=== PATIENT | male | born 1930 | race Two or more races ===

== ENCOUNTER 2017-09-04 10:27 | Inpatient (IN) | payer MEDICARE, OTHER ==
[~2017-09-04] VITALS: Ht 170.2 cm; Wt 68.0 kg
[~2017-09-04 10:27] MED LIST: AMLODIPINE BESY10 MG ORAL; ARICEPT5 MG ORAL; ASPIRIN EC81 MG ORAL; DIVALPROEX SOD125 MG PO; DOCUSATE SODIU100 M2 ORAL; MILK OF MA400 MG/51 ORAL; NAMENDA5 MG ORAL; NITROGLYCERIN0.4 MG SL; POLYETHYLENE GL17 GM ORAL; TYLENOL325 MG ORAL; ZYPREXA ZYDIS5 MG ORAL
[2017-09-04 10:45] VITALS: BP 128/45
[2017-09-04] MEDS ORDERED: LACTULOSE20 GM/301 ORAL (10:50)
[2017-09-04] MEDS ORDERED: IMODIUM A-D2 M2 PO (10:50)
[2017-09-04] MEDS ORDERED: CENTRUM SILVER1 EAC7 PO (10:50)
[2017-09-04] MEDS ORDERED: CITRACAL-VIT D1 EAC2 PO (10:50)
[2017-09-04] MEDS ORDERED: Sodium Chloride 500ML 500 ML IV ONE (10:51)
[2017-09-04 11:08] LABS: BASOPHILS % (AUTO) 1.6 % (0.0-2.0); EOSINOPHILS % (AUTO) 2.7 % (0.0-3.0); LYMPHOCYTES % (AUTO) 19.8 % (20.0-45.0); MEAN CORPUSCULAR HEMOGLOBIN 32.4 PG (27.0-31.0); MEAN CORPUSCULAR HGB CONC 33.8 G/DL (32.0-36.0); MEAN CORPUSCULAR VOLUME 96 FL (80-99); MEAN PLATELET VOLUME 6.3 FL (6.5-10.1); MONOCYTES % (AUTO) 8.9 % (1.0-10.0); NEUTROPHILS % (AUTO) 67.1 % (45.0-75.0); PLATELET COUNT 242 K/UL (150-450); RED BLOOD COUNT 4.06 M/UL (4.70-6.10); RED CELL DISTRIBUTION WIDTH 12.4 % (11.6-14.8); WHITE BLOOD COUNT 7.5 K/UL (4.8-10.8)
[2017-09-04 11:38] LABS: APPEARANCE,URINE CLEAR; KETONES,URINE 2+ (NEGATIVE); LEUKOCYTE ESTERASE ,URINE 1+ (NEGATIVE); NITRITE,URINE NEGATIVE (NEGATIVE); PH,URINE 5 (4.5-8.0); PROTEIN,URINE 2+ (NEGATIVE); UROBILINOGEN,URINE 1 MG/DL (0.0-1.0)
--- NOTE | 2017-09-04 11:43 | Emergency Room Report ---
History of Present Illness General Chief Complaint: Chest Pain Source: Family Member Present Illness HPI 87-year-old male presents ED for evaluation. Son at bedside states that patient complaining of chest pain for last 5 days. Denies any chest pain at this time. Intermittent. Midsternal, nonradiating. Denies shortness of breath. Denies fevers chills or cough. Patient also complaining of diarrhea for the last 5 days. States he is feeling weak. Poor appetite. Denies recent travel or sick contacts. No other aggravating relieving factors. Denies any other associated symptoms Allergies: Coded Allergies: No Known Allergies (Unverified , 05/17/16) Patient History Past Medical History: HTN, dementia Past Surgical History: none Pertinent Family History: none Social History: Denies: smoking, alcohol use, drug use Immunizations: UTD Reviewed Nursing Documentation: PMH: Agreed, PSxH: Agreed Nursing Documentation-PMH Hx Hypertension: Yes Hx Cancer: No Hx Gastrointestinal Problems: No Hx Dementia: Yes Review of Systems All Other Systems: negative except mentioned in HPI Physical Exam Vital Signs Date Time Temp Pulse Resp B/P (MAP) Pulse Ox O2 Delivery O2 Flow Rate FiO2 09/04/17 10:35 97.2 78 24 129/64 98 Room Air Sp02 EP Interpretation: reviewed, normal General Appearance: no apparent distress, alert, GCS 15, non-toxic Head: normocephalic, atraumatic Eyes: bilateral eye normal inspection, bilateral eye PERRL ENT: hearing grossly normal, normal pharynx, no angioedema, normal voice Neck: full range of motion, supple/symm/no masses Respiratory: chest non-tender, lungs clear, normal breath sounds, speaking full sentences Cardiovascular #1: regular rate, rhythm, no edema Cardiovascular #2: 2+ carotid (R), 2+ carotid (L), 2+ radial (R), 2+ radial (L) , 2+ dorsalis pedis (R), 2+ dorsalis pedis (L) Gastrointestinal: normal bowel sounds, non tender, soft, non-distended, no guarding, no rebound Rectal: deferred Genitourinary: normal inspection, no CVA tenderness Musculoskeletal: back normal, gait/station normal, normal range of motion, non- tender Neurologic: alert, oriented x3, responsive, motor strength/tone normal, sensory intact, speech normal Psychiatric: judgement/insight normal, memory normal, mood/affect normal, no suicidal/homicidal ideation Reflexes: 3+ bicep (R), 3+ bicep (L), 3+ tricep (R), 3+ tricep (L), 3+ knee (R) , 3+ knee (L) Skin: normal color, no rash, warm/dry, well hydrated Lymphatic: no adenopathy Medical Decision Making Diagnostic Impression: Primary Impression: ACS (acute coronary syndrome) Additional Impressions: Alzheimer's dementia Qualified Codes: G30.9 - Alzheimer's disease, unspecified; F02.80 - Dementia in other diseases classified elsewhere without behavioral disturbance Diarrhea Qualified Codes: R19.7 - Diarrhea, unspecified Hypokalemia ER Course Hospital Course 87-year-old male presents to ED complaining of chest pain, diarrhea x5 days Differential diagnoses include: [place]/unstable angina, dehydration,sepsis Clinical course Patient placed on stretcher. on laminate floor installer. After initial history and physical I ordered labs, EKG, chest x-ray, IVFs labs reviewed- no leukocytosis, hb/hct stable, K 2.7, Trop negative EKG - NSR, no acute ischemic changes interpreted by me Chest x-ray- no acute process identified Aspirin given. Potassium repleted Case discussed with Dr. Stevens and he agreed to accept the patient to his service for further care and support I. I feel this is a highly complex case requiring extensive working including EKG/Rhythm strip, Xray/CT/US, Blood/urine lab work, repeat exams while in ED, and administration of strong opiates/narcotics for pain control, admission to hospital or close patient follow up. Diagnosis - ACS, dementia, diarrhea, hypokalemia admitted to telemetry in serious condition Labs Test 09/04/17 11:00 09/04/17 11:26 White Blood Count 7.5 K/UL (4.8-10.8) Red Blood Count 4.06 M/UL (4.70-6.10) Hemoglobin 13.2 G/DL (14.2-18.0) Hematocrit 38.9 % (42.0-52.0) Mean Corpuscular Volume 96 FL (80-99) Mean Corpuscular Hemoglobin 32.4 PG (27.0-31.0) Mean Corpuscular Hemoglobin Concent 33.8 G/DL (32.0-36.0) Red Cell Distribution Width 12.4 % (11.6-14.8) Platelet Count 242 K/UL (150-450) Mean Platelet Volume 6.3 FL (6.5-10.1) Neutrophils (%) (Auto) 67.1 % (45.0-75.0) Lymphocytes (%) (Auto) 19.8 % (20.0-45.0) Monocytes (%) (Auto) 8.9 % (1.0-10.0) Eosinophils (%) (Auto) 2.7 % (0.0-3.0) Basophils (%) (Auto) 1.6 % (0.0-2.0) Sodium Level 147 MMOL/L (136-145) Potassium Level 2.7 MMOL/L (3.5-5.1) Chloride Level 110 MMOL/L (98-107) Carbon Dioxide Level 26 MMOL/L (21-32) Anion Gap 11 mmol/L (5-15) Blood Urea Nitrogen 28 mg/dL (7-18) Creatinine 1.0 MG/DL (0.55-1.30) Estimat Glomerular Filtration Rate mL/min (>60) Glucose Level 111 MG/DL (74-106) Calcium Level 9.3 MG/DL (8.5-10.1) Total Bilirubin 0.7 MG/DL (0.2-1.0) Aspartate Amino Transf (AST/SGOT) 23 U/L (15-37) Alanine Aminotransferase (ALT/SGPT) 33 U/L (12-78) Alkaline Phosphatase 50 U/L (46-116) Total Creatine Kinase 115 U/L (26-308) Creatine Kinase MB 3.9 NG/ML (0.0-3.6) Creatine Kinase MB Relative Index 3.3 Troponin I 0.000 ng/mL (0.000-0.056) Pro-B-Type Natriuretic Peptide 248 pg/mL (0-125) Total Protein 7.3 G/DL (6.4-8.2) Albumin 3.8 G/DL (3.4-5.0) Globulin 3.5 g/dL Albumin/Globulin Ratio 1.1 (1.0-2.7) Urine Color Yellow Urine Appearance Clear Urine pH 5 (4.5-8.0) Urine Specific [place] 1.020 (1.005-1.035) Urine Protein 2+ (NEGATIVE) Urine Glucose (UA) Negative (NEGATIVE) Urine Ketones 2+ (NEGATIVE) Urine Occult Blood Negative (NEGATIVE) Urine Nitrite Negative (NEGATIVE) Urine Bilirubin Negative (NEGATIVE) Urine Urobilinogen 1 MG/DL (0.0-1.0) Urine Leukocyte Esterase 1+ (NEGATIVE) Urine RBC 0-2 /HPF (0 - 0) Urine WBC 2-4 /HPF (0 - 0) Urine Squamous Epithelial Cells Occasional /LPF Urine Bacteria Occasional /HPF (NONE) Urine Mucus Few /LPF (NONE/OCC) EKG Diagnostic Results Rate: normal Rhythm: NSR ST Segments: no acute changes ASA given to the pt in ED: Yes Rhythm Strip Diag. Results EP Interpretation: yes Rhythm: NSR, no PVC's, no ectopy Chest X-Ray Diagnostic Results Chest X-Ray Diagnostic Results : Chest X-Ray Ordered: Yes # of Views/Limited/Complete: 1 View Indication: Chest Pain EP Interpretation: Yes Interpretation: no consolidation, no effusion, no pneumothorax, no acute cardiopulmonary disease Impression: No acute disease Electronically Signed by: Electronically signed by Ken Jones MD Last Vital Signs Date Time Temp Pulse Resp B/P (MAP) Pulse Ox O2 Delivery O2 Flow Rate FiO2 09/04/17 10:45 78 24 Room Air 09/04/17 10:45 97.2 128/45 97 Status: improved Disposition: ADMITTED INPATIENT Condition: Serious Referrals: Darvin Stevens MD (PCP) KEN JONES M.D. Sep 04, 2017 11:43
[2017-09-04 11:47] LABS: BACTERIA,URINE OCCASIONAL /HPF; MUCUS,URINE FEW /LPF (NONE/OCC); RBC,URINE 0-2 /HPF (0 - 0); SQUAMOUS EPITHELIAL CELL,UR OCCASIONAL /LPF (NONE/OCC)
[2017-09-04 11:49] LABS: ALANINE AMINOTRANSFERASE 33 U/L (12-78); ALBUMIN/GLOBULIN RATIO 1.1 (1.0-2.7); ANION GAP 11 mmol/L (5-15); ASPARTATE AMINO TRANSFERASE 23 U/L (15-37); CALCIUM 9.3 MG/DL (8.5-10.1); CARBON DIOXIDE 26 MMOL/L (21-32); CHLORIDE 110 MMOL/L (98-107); CKMB 3.9 NG/ML (0.0-3.6); SODIUM 147 MMOL/L (136-145); TOTAL PROTEIN 7.3 G/DL (6.4-8.2)
[2017-09-04 11:51] LABS: POTASSIUM 2.7 MMOL/L (3.5-5.1)
[2017-09-04] MEDS ORDERED: Potassium Chloride 50 MEQ in Sodium Chloride 500ML 550 ML IVPB ONE (12:00)
[2017-09-04 12:40] VITALS: BP 138/68
[2017-09-04] MEDS ORDERED: Enalaprilat 2.5mg/2ml Inj IV PRN (12:45)
[2017-09-04] MEDS ORDERED: Miralax 17gm pkt ORAL PRN (12:45)
[2017-09-04] MEDS ORDERED: dilTIAZem HCl 25mg/5ml Inj IV PRN (12:45)
[2017-09-04] MEDS ORDERED: Ketorolac 30mg Inj IV PRN (12:45)
[2017-09-04] MEDS ORDERED: Morphine Sulfate 2mg/ml Inj IVP PRN (12:45)
[2017-09-04] MEDS ORDERED: Nitroglycerin Subl 0.4mg tab SL PRN (12:45)
[2017-09-04] MEDS ORDERED: Albuterol/Ipratropium 3ml neb HHN PRN (12:45)
[2017-09-04 13:20] VITALS: BP 117/51
--- NOTE | 2017-09-04 13:52 | Consultation ---
History of Present Illness General Date patient seen: Sep 04, 2017 Chief Complaint: Chest Pain Referring physician: Dr. Das Reason for Consultation: chest pain Present Illness HPI 87-year-old male with hx of dementia and HTN presented to ED for evaluation of chest pain for last 5 days. Denies any chest pain at this time. Intermittent. Midsternal, nonradiating. Denies shortness of breath. Denies fevers chills or cough. Patient also complaining of diarrhea for the last 5 days. States he is feeling weak. Poor appetite. Pt can not provide any history and all information is obtained form the chart. Allergies: Coded Allergies: No Known Allergies (Unverified , 05/17/16) Medication History Scheduled Amlodipine Besylate* (Amlodipine Besylate*), 10 MG ORAL DAILY, (Reported) Aspirin Ec* (Aspirin Ec*), 81 MG ORAL DAILY, (Reported) Divalproex Sodium (Divalproex Sodium), 125 MG PO EVERY 12 HOURS, (Reported) Docusate Sodium (Docusate Sodium), 100 MG ORAL TWICE A DAY, (Reported) Donepezil Hcl* (Aricept*), 5 MG ORAL DAILY, (Reported) Magnesium Hydroxide* (Milk Of Magnesia*), 30 ML ORAL DAILY, (Reported) Memantine Hcl* (Namenda*), 5 MG ORAL TWICE A DAY, (Reported) Nitroglycerin (Nitroglycerin), 0.4 MG SL q5m x3 doses prn, (Reported) Nitroglycerin (Nitroglycerin), 0.4 MG SL q5mins x3 doses prn , (Reported) Olanzapine Zydis* (Zyprexa Zydis*), 5 MG ORAL DAILY, (Reported) Scheduled PRN Acetaminophen (Tylenol), 650 MG ORAL EVERY 4 HOURS PRN for Fever/Headache/Mild Pain, (Reported) Polyethylene Glycol 3350* (Polyethylene Glycol 3350*), 17 GM ORAL BEDTIME PRN for Constipation, (Reported) Miscellaneous Medications Manav Cit/Mag/D3/Zn/Branch Lending Manager/Yonny/Bor (Citracal-Vit D + Magnesium Tab), 1 EACH PO, ( Reported) Lactulose (Lactulose*), 30 ML ORAL, (Reported) Loperamide HCl (Imodium A-D), 2 MG PO, (Reported) Multivit-Min/FA/Lycopen/Lutein (Centrum Silver Men Tablet), 1 EACH PO, (Reported ) Patient History Healthcare decision maker Resuscitation status Advanced Directive on File Past Medical/Surgical History Past Medical/Surgical History: (1) Hypertension (2) Alzheimer's dementia Review of Systems All Other Systems: negative except mentioned in HPI Physical Exam General Appearance: WD/WN Lines, tubes and drains: peripheral HEENT: normocephalic, atraumatic Neck: non-tender, normal alignment Respiratory/Chest: chest wall non-tender, lungs clear, normal breath sounds Cardiovascular/Chest: normal peripheral pulses, normal rate Abdomen: normal bowel sounds Genitourinary/Rectal: normal genital exam Extremities: normal range of motion Last 24 Hour Vital Signs Date Time Temp Pulse Resp B/P (MAP) Pulse Ox O2 Delivery O2 Flow Rate FiO2 09/04/17 13:20 98.0 60 15 117/51 95 Room Air 09/04/17 12:40 98.0 70 17 138/68 96 Room Air 09/04/17 10:45 78 24 Room Air 09/04/17 10:45 97.2 65 19 128/45 97 Room Air 09/04/17 10:35 97.2 78 24 129/64 98 Room Air Intake and Output 09/04/17 09/05/17 19:00 07:00 Intake Total 0 ml Balance 0 ml Intake Oral 0 ml Laboratory Tests Test 09/04/17 11:00 09/04/17 11:26 White Blood Count 7.5 K/UL (4.8-10.8) Red Blood Count 4.06 M/UL (4.70-6.10) L Hemoglobin 13.2 G/DL (14.2-18.0) L Hematocrit 38.9 % (42.0-52.0) L Mean Corpuscular Volume 96 FL (80-99) Mean Corpuscular Hemoglobin 32.4 PG (27.0-31.0) H Mean Corpuscular Hemoglobin Concent 33.8 G/DL (32.0-36.0) Red Cell Distribution Width 12.4 % (11.6-14.8) Platelet Count 242 K/UL (150-450) Mean Platelet Volume 6.3 FL (6.5-10.1) L Neutrophils (%) (Auto) 67.1 % (45.0-75.0) Lymphocytes (%) (Auto) 19.8 % (20.0-45.0) L Monocytes (%) (Auto) 8.9 % (1.0-10.0) Eosinophils (%) (Auto) 2.7 % (0.0-3.0) Basophils (%) (Auto) 1.6 % (0.0-2.0) Sodium Level 147 MMOL/L (136-145) H Potassium Level 2.7 MMOL/L (3.5-5.1) *L Chloride Level 110 MMOL/L (98-107) H Carbon Dioxide Level 26 MMOL/L (21-32) Anion Gap 11 mmol/L (5-15) Blood Urea Nitrogen 28 mg/dL (7-18) H Creatinine 1.0 MG/DL (0.55-1.30) Estimat Glomerular Filtration Rate mL/min (>60) Glucose Level 111 MG/DL (74-106) H Calcium Level 9.3 MG/DL (8.5-10.1) Total Bilirubin 0.7 MG/DL (0.2-1.0) Aspartate Amino Transf (AST/SGOT) 23 U/L (15-37) Alanine Aminotransferase (ALT/SGPT) 33 U/L (12-78) Alkaline Phosphatase 50 U/L (46-116) Total Creatine Kinase 115 U/L (26-308) Creatine Kinase MB 3.9 NG/ML (0.0-3.6) H Creatine Kinase MB Relative Index 3.3 Troponin I 0.000 ng/mL (0.000-0.056) Pro-B-Type Natriuretic Peptide 248 pg/mL (0-125) H Total Protein 7.3 G/DL (6.4-8.2) Albumin 3.8 G/DL (3.4-5.0) Globulin 3.5 g/dL Albumin/Globulin Ratio 1.1 (1.0-2.7) Urine Color Yellow Urine Appearance Clear Urine pH 5 (4.5-8.0) Urine Specific [place] 1.020 (1.005-1.035) Urine Protein 2+ (NEGATIVE) H Urine Glucose (UA) Negative (NEGATIVE) Urine Ketones 2+ (NEGATIVE) H Urine Occult Blood Negative (NEGATIVE) Urine Nitrite Negative (NEGATIVE) Urine Bilirubin Negative (NEGATIVE) Urine Urobilinogen 1 MG/DL (0.0-1.0) H Urine Leukocyte Esterase 1+ (NEGATIVE) H Urine RBC 0-2 /HPF (0 - 0) H Urine WBC 2-4 /HPF (0 - 0) Urine Squamous Epithelial Cells Occasional /LPF Urine Bacteria Occasional /HPF (NONE) Urine Mucus Few /LPF (NONE/OCC) H Height (Feet): 5 Height (Inches): 7.00 Weight (Pounds): 150 Medications Current Medications Medications (Trade) Dose Ordered Sig/Nicolle Route PRN Reason Start Time Stop Time Status Last Admin Dose Admin Acetaminophen (Tylenol) 650 mg Q4H PRN ORAL FEVER 09/04/17 12:45 10/04/17 12:44 Albuterol/ Ipratropium (Albuterol/ Ipratropium) 3 ml EVERY 4 HOURS PRN HHN Shortness of Breath 09/04/17 12:45 09/09/17 12:44 Amlodipine Besylate (Norvasc) 10 mg DAILY ORAL 09/05/17 09:00 10/05/17 08:59 Aspirin (ASA) 162 mg DAILY ORAL 09/05/17 09:00 10/05/17 08:59 Diltiazem HCl (Cardizem) 10 mg EVERY HOUR PRN IV heart rate more than 120, 09/04/17 12:45 10/04/17 12:44 Divalproex Sodium (Depakote Sprinkles) 125 mg EVERY 12 HOURS ORAL 09/04/17 21:00 10/04/17 20:59 Donepezil HCl (Aricept) 5 mg DAILY ORAL 09/05/17 09:00 10/05/17 08:59 Enalaprilat (Vasotec) 2.5 mg EVERY 6 HOURS PRN IV sbp more than 160 09/04/17 12:45 10/04/17 12:44 Heparin Sodium (Porcine) (Heparin 5000 units/ml) 5,000 units EVERY 12 HOURS SUBQ 09/04/17 21:00 10/04/17 20:59 Ketorolac Tromethamine (Toradol 30mg) 30 mg Q6HR PRN IV moderate pain ( 4-6) 09/04/17 12:45 09/09/17 12:44 Memantine (Namenda) 5 mg TWICE A DAY ORAL 09/04/17 18:00 1/11/18 17:59 Morphine Sulfate (Morphine Sulfate) 2 mg EVERY 4 HOURS PRN IVP severe Pain (Pain Scale 7-10) 09/04/17 12:45 09/11/17 12:44 Nitroglycerin (Ntg) 0.4 mg Q5M PRN SL Prn Chest Pain 09/04/17 12:45 10/04/17 12:44 Olanzapine (ZyPREXA Zydis) 5 mg DAILY ORAL 09/05/17 09:00 10/05/17 08:59 Ondansetron HCl (Zofran) 4 mg Q6H PRN IVP Nausea & Vomiting 09/04/17 12:45 10/04/17 12:44 Polyethylene Glycol (Miralax) 17 gm DAILYPRN PRN ORAL Constipation 09/04/17 12:45 10/04/17 12:44 Potassium Chloride 50 meq/ Sodium Chloride 575 ml @ 115 mls/hr ONCE ONCE IVPB 09/04/17 12:00 09/04/17 16:59 09/04/17 12:24 Temazepam (Restoril) 15 mg HSPRN PRN ORAL Insomnia 09/04/17 12:45 09/11/17 12:44 Assessment/Plan Problem List: (1) ACS (acute coronary syndrome) ICD Codes: I24.9 - Acute ischemic heart disease, unspecified SNOMED: 320322445 (2) Hypertension ICD Codes: I10 - Essential (primary) hypertension SNOMED: 93567357 (3) Alzheimer's dementia ICD Codes: G30.9 - Alzheimer's disease, unspecified SNOMED: 93813469 Qualifiers: Qualified Codes: G30.9 - Alzheimer's disease, unspecified; F02.80 - Dementia in other diseases classified elsewhere without behavioral disturbance (4) Diarrhea ICD Codes: R19.7 - Diarrhea, unspecified SNOMED: 29826392 Qualifiers: Qualified Codes: R19.7 - Diarrhea, unspecified Assessment/Plan serial ekg, troponin cardiology evaluation echo dvt prophyalxis monitor BP DUNIA COLLINS Sep 04, 2017 13:52
--- NOTE | 2017-09-04 15:16 | Cardiology Progress Note ---
Assessment/Plan Assessment/Plan [id number] chp encephalopathy demtia ? repeat enzyem / echo and ekg hopefully will becomer more awake ot see about sx Objective Last 24 Hour Vital Signs Date Time Temp Pulse Resp B/P (MAP) Pulse Ox O2 Delivery O2 Flow Rate FiO2 09/04/17 13:35 98.0 60 15 117/51 95 Room Air 09/04/17 13:20 98.0 60 15 117/51 95 Room Air 09/04/17 12:40 98.0 70 17 138/68 96 Room Air 09/04/17 10:45 78 24 Room Air 09/04/17 10:45 97.2 65 19 128/45 97 Room Air 09/04/17 10:35 97.2 78 24 129/64 98 Room Air Intake and Output 09/04/17 09/05/17 19:00 07:00 Intake Total 0 ml Balance 0 ml Intake Oral 0 ml Laboratory Tests Test 09/04/17 11:00 09/04/17 11:26 White Blood Count 7.5 K/UL (4.8-10.8) Red Blood Count 4.06 M/UL (4.70-6.10) L Hemoglobin 13.2 G/DL (14.2-18.0) L Hematocrit 38.9 % (42.0-52.0) L Mean Corpuscular Volume 96 FL (80-99) Mean Corpuscular Hemoglobin 32.4 PG (27.0-31.0) H Mean Corpuscular Hemoglobin Concent 33.8 G/DL (32.0-36.0) Red Cell Distribution Width 12.4 % (11.6-14.8) Platelet Count 242 K/UL (150-450) Mean Platelet Volume 6.3 FL (6.5-10.1) L Neutrophils (%) (Auto) 67.1 % (45.0-75.0) Lymphocytes (%) (Auto) 19.8 % (20.0-45.0) L Monocytes (%) (Auto) 8.9 % (1.0-10.0) Eosinophils (%) (Auto) 2.7 % (0.0-3.0) Basophils (%) (Auto) 1.6 % (0.0-2.0) Sodium Level 147 MMOL/L (136-145) H Potassium Level 2.7 MMOL/L (3.5-5.1) *L Chloride Level 110 MMOL/L (98-107) H Carbon Dioxide Level 26 MMOL/L (21-32) Anion Gap 11 mmol/L (5-15) Blood Urea Nitrogen 28 mg/dL (7-18) H Creatinine 1.0 MG/DL (0.55-1.30) Estimat Glomerular Filtration Rate mL/min (>60) Glucose Level 111 MG/DL (74-106) H Calcium Level 9.3 MG/DL (8.5-10.1) Total Bilirubin 0.7 MG/DL (0.2-1.0) Aspartate Amino Transf (AST/SGOT) 23 U/L (15-37) Alanine Aminotransferase (ALT/SGPT) 33 U/L (12-78) Alkaline Phosphatase 50 U/L (46-116) Total Creatine Kinase 115 U/L (26-308) Creatine Kinase MB 3.9 NG/ML (0.0-3.6) H Creatine Kinase MB Relative Index 3.3 Troponin I 0.000 ng/mL (0.000-0.056) Pro-B-Type Natriuretic Peptide 248 pg/mL (0-125) H Total Protein 7.3 G/DL (6.4-8.2) Albumin 3.8 G/DL (3.4-5.0) Globulin 3.5 g/dL Albumin/Globulin Ratio 1.1 (1.0-2.7) Urine Color Yellow Urine Appearance Clear Urine pH 5 (4.5-8.0) Urine Specific [place] 1.020 (1.005-1.035) Urine Protein 2+ (NEGATIVE) H Urine Glucose (UA) Negative (NEGATIVE) Urine Ketones 2+ (NEGATIVE) H Urine Occult Blood Negative (NEGATIVE) Urine Nitrite Negative (NEGATIVE) Urine Bilirubin Negative (NEGATIVE) Urine Urobilinogen 1 MG/DL (0.0-1.0) H Urine Leukocyte Esterase 1+ (NEGATIVE) H Urine RBC 0-2 /HPF (0 - 0) H Urine WBC 2-4 /HPF (0 - 0) Urine Squamous Epithelial Cells Occasional /LPF Urine Bacteria Occasional /HPF (NONE) Urine Mucus Few /LPF (NONE/OCC) H DAO HERRERA Sep 04, 2017 15:16
[2017-09-04 16:00] VITALS: BP 157/60
--- NOTE | 2017-09-04 16:29 | GI Initial Consult Note ---
AnisaMaggi Cristofer N.PClaudia 09/04/17 1629: History of Present Illness General Date patient seen: Sep 04, 2017 Time patient seen: 16:15 Reason for Hospitalization: Chest Pain Referring physician: DUNIA ALVAREZ Reason for Consultation: DIARRHEA Present Illness HPI 87-year-old male presents ED for evaluation. Son at bedside states that patient complaining of chest pain for last 5 days. Denies any chest pain at this time. Intermittent. Midsternal, nonradiating. Denies shortness of breath. Denies fevers chills or cough. Patient also complaining of diarrhea for the last 5 days. States he is feeling weak. Poor appetite. Denies recent travel or sick contacts. No other aggravating relieving factors. Denies any other associated symptoms. GI consulted for diarrhea. HPI as noted above. Pt seen on floor, awake A&Ox4 NAD with no active s/sx of N/V/D. Complain of abdominal pain. No noted diarrhea at this time. Presents today with generalized weakness, mild anemia and hypokalemia. Unknown history of endoscopic / colonoscopies. PAST MEDICAL HISTORY/PAST SURGICAL HISTORY: As above history of hypertension, osteoarthritis, and possible dementia. He had a history of leg surgery in the past for unknown reasons. Home Meds Reported Medications Multivit-Min/FA/Lycopen/Lutein (CENTRUM SILVER MEN TABLET) 1 Each Tablet, 1 EACH PO, TAB 09/04/17 Manav Cit/Mag/D3/Zn/On Site Coordinator/Yonny/Bor (CITRACAL-VIT D + MAGNESIUM TAB) 1 Each Tablet, 1 EACH PO, TAB 09/04/17 Loperamide HCl (IMODIUM A-D) 2 Mg Capsule, 2 MG PO, CAP 09/04/17 Lactulose (LACTULOSE*) 20 Gm/30 Ml Solution, 30 ML ORAL, ML 0 Refills 09/04/17 Acetaminophen (Tylenol) 325 Mg Tablet, 650 MG ORAL EVERY 4 HOURS Y for Fever/ Headache/Mild Pain, #30 TAB 0 Refills 05/20/16 Polyethylene Glycol 3350* (POLYETHYLENE GLYCOL 3350*) 17 Gm Powd.pack, 17 GM ORAL BEDTIME Y for Constipation, PACKET 05/20/16 Nitroglycerin (NITROGLYCERIN) 0.4 Mg Tab.subl, 0.4 MG SL q5mins x3 doses prn , TAB 05/20/16 Nitroglycerin (NITROGLYCERIN) 0.4 Mg Tab.subl, 0.4 MG SL q5m x3 doses prn, TAB 05/20/16 Magnesium Hydroxide* (MILK OF MAGNESIA*) 400 Mg/5 Ml Oral.susp, 30 ML ORAL DAILY , ML 05/20/16 Divalproex Sodium (DIVALPROEX SODIUM) 125 Mg Cap.sprink, 125 MG PO EVERY 12 HOURS, CAP 05/20/16 Donepezil Hcl* (ARICEPT*) 5 Mg Tablet, 5 MG ORAL DAILY, TAB 05/20/16 Aspirin Ec* (ASPIRIN EC*) 81 Mg Tablet.dr, 81 MG ORAL DAILY, TAB 05/20/16 Docusate Sodium (DOCUSATE SODIUM) 100 Mg Tablet, 100 MG ORAL TWICE A DAY, #60 TAB 0 Refills 05/20/16 Olanzapine Zydis* (ZYPREXA ZYDIS*) 5 Mg Tab.rapdis, 5 MG ORAL DAILY, #30 TAB 0 Refills 05/20/16 Memantine Hcl* (NAMENDA*) 5 Mg Tablet, 5 MG ORAL TWICE A DAY, TAB 05/20/16 Amlodipine Besylate* (AMLODIPINE BESYLATE*) 10 Mg Tablet, 10 MG ORAL DAILY, TAB 05/17/16 Med list reviewed/reconciled: Yes Allergies: Coded Allergies: No Known Allergies (Unverified , 05/17/16) Patient History History Provided By: Patient, Medical Record PMH Narrative Past Medical History: HTN, dementia Past Surgical History: none Pertinent Family History: none Social History: Denies: smoking, alcohol use, drug use Immunizations: UTD Reviewed Nursing Documentation: PMH: Agreed, PSxH: Agreed Nursing Documentation-PMH Hx Hypertension: Yes Hx Cancer: No Hx Gastrointestinal Problems: No Hx Dementia: Yes Review of Systems All Other Systems: negative except mentioned in HPI Physical Exam Vital Signs Date Time Temp Pulse Resp B/P (MAP) Pulse Ox O2 Delivery O2 Flow Rate FiO2 09/04/17 10:35 97.2 78 24 129/64 98 Room Air Sp02 EP Interpretation: reviewed, normal Labs Laboratory Tests Test 09/04/17 11:00 09/04/17 11:26 White Blood Count 7.5 K/UL (4.8-10.8) Red Blood Count 4.06 M/UL (4.70-6.10) L Hemoglobin 13.2 G/DL (14.2-18.0) L Hematocrit 38.9 % (42.0-52.0) L Mean Corpuscular Volume 96 FL (80-99) Mean Corpuscular Hemoglobin 32.4 PG (27.0-31.0) H Mean Corpuscular Hemoglobin Concent 33.8 G/DL (32.0-36.0) Red Cell Distribution Width 12.4 % (11.6-14.8) Platelet Count 242 K/UL (150-450) Mean Platelet Volume 6.3 FL (6.5-10.1) L Neutrophils (%) (Auto) 67.1 % (45.0-75.0) Lymphocytes (%) (Auto) 19.8 % (20.0-45.0) L Monocytes (%) (Auto) 8.9 % (1.0-10.0) Eosinophils (%) (Auto) 2.7 % (0.0-3.0) Basophils (%) (Auto) 1.6 % (0.0-2.0) Sodium Level 147 MMOL/L (136-145) H Potassium Level 2.7 MMOL/L (3.5-5.1) *L Chloride Level 110 MMOL/L (98-107) H Carbon Dioxide Level 26 MMOL/L (21-32) Anion Gap 11 mmol/L (5-15) Blood Urea Nitrogen 28 mg/dL (7-18) H Creatinine 1.0 MG/DL (0.55-1.30) Estimat Glomerular Filtration Rate mL/min (>60) Glucose Level 111 MG/DL (74-106) H Calcium Level 9.3 MG/DL (8.5-10.1) Total Bilirubin 0.7 MG/DL (0.2-1.0) Aspartate Amino Transf (AST/SGOT) 23 U/L (15-37) Alanine Aminotransferase (ALT/SGPT) 33 U/L (12-78) Alkaline Phosphatase 50 U/L (46-116) Total Creatine Kinase 115 U/L (26-308) Creatine Kinase MB 3.9 NG/ML (0.0-3.6) H Creatine Kinase MB Relative Index 3.3 Troponin I 0.000 ng/mL (0.000-0.056) Pro-B-Type Natriuretic Peptide 248 pg/mL (0-125) H Total Protein 7.3 G/DL (6.4-8.2) Albumin 3.8 G/DL (3.4-5.0) Globulin 3.5 g/dL Albumin/Globulin Ratio 1.1 (1.0-2.7) Urine Color Yellow Urine Appearance Clear Urine pH 5 (4.5-8.0) Urine Specific [place] 1.020 (1.005-1.035) Urine Protein 2+ (NEGATIVE) H Urine Glucose (UA) Negative (NEGATIVE) Urine Ketones 2+ (NEGATIVE) H Urine Occult Blood Negative (NEGATIVE) Urine Nitrite Negative (NEGATIVE) Urine Bilirubin Negative (NEGATIVE) Urine Urobilinogen 1 MG/DL (0.0-1.0) H Urine Leukocyte Esterase 1+ (NEGATIVE) H Urine RBC 0-2 /HPF (0 - 0) H Urine WBC 2-4 /HPF (0 - 0) Urine Squamous Epithelial Cells Occasional /LPF Urine Bacteria Occasional /HPF (NONE) Urine Mucus Few /LPF (NONE/OCC) H General Appearance: well appearing, no apparent distress, alert Head: normocephalic EENT: PERRL/EOMI, normal ENT inspection Neck: supple Respiratory: normal breath sounds, no respiratory distress Cardiovascular: normal rate Gastrointestinal: normal inspection, non tender, soft, normal bowel sounds, non -distended Rectal: deferred Genitourinary: deferred Musculoskeletal: normal inspection, back normal Neurologic: normal inspection, alert, responsive Psychiatric: normal inspection, judgement/insight normal, memory normal Skin: normal inspection, normal color, no rash, warm/dry, palpation normal, well hydrated Lymphatic: normal inspection, no adenopathy Current Medications Current Medications Medications (Trade) Dose Ordered Sig/Nicolle Route PRN Reason Start Time Stop Time Status Last Admin Dose Admin Acetaminophen (Tylenol) 650 mg Q4H PRN ORAL FEVER 09/04/17 12:45 10/04/17 12:44 Albuterol/ Ipratropium (Albuterol/ Ipratropium) 3 ml EVERY 4 HOURS PRN HHN Shortness of Breath 09/04/17 12:45 09/09/17 12:44 Amlodipine Besylate (Norvasc) 10 mg DAILY ORAL 09/05/17 09:00 10/05/17 08:59 Aspirin (ASA) 162 mg DAILY ORAL 09/05/17 09:00 10/05/17 08:59 Diltiazem HCl (Cardizem) 10 mg EVERY HOUR PRN IV heart rate more than 120, 09/04/17 12:45 10/04/17 12:44 Divalproex Sodium (Depakote Sprinkles) 125 mg EVERY 12 HOURS ORAL 09/04/17 21:00 10/04/17 20:59 Donepezil HCl (Aricept) 5 mg DAILY ORAL 09/05/17 09:00 10/05/17 08:59 Enalaprilat (Vasotec) 2.5 mg EVERY 6 HOURS PRN IV sbp more than 160 09/04/17 12:45 10/04/17 12:44 Heparin Sodium (Porcine) (Heparin 5000 units/ml) 5,000 units EVERY 12 HOURS SUBQ 09/04/17 21:00 10/04/17 20:59 Ketorolac Tromethamine (Toradol 30mg) 30 mg Q6HR PRN IV moderate pain ( 4-6) 09/04/17 12:45 09/09/17 12:44 Memantine (Namenda) 5 mg TWICE A DAY ORAL 09/04/17 18:00 10/04/17 17:59 Morphine Sulfate (Morphine Sulfate) 2 mg EVERY 4 HOURS PRN IVP severe Pain (Pain Scale 7-10) 09/04/17 12:45 09/11/17 12:44 Nitroglycerin (Ntg) 0.4 mg Q5M PRN SL Prn Chest Pain 09/04/17 12:45 10/04/17 12:44 Olanzapine (ZyPREXA Zydis) 5 mg DAILY ORAL 09/05/17 09:00 10/05/17 08:59 Ondansetron HCl (Zofran) 4 mg Q6H PRN IVP Nausea & Vomiting 09/04/17 12:45 10/04/17 12:44 Polyethylene Glycol (Miralax) 17 gm DAILYPRN PRN ORAL Constipation 09/04/17 12:45 10/04/17 12:44 Potassium Chloride 50 meq/ Sodium Chloride 575 ml @ 115 mls/hr ONCE ONCE IVPB 09/04/17 12:00 09/04/17 16:59 09/04/17 12:24 Temazepam (Restoril) 15 mg HSPRN PRN ORAL Insomnia 09/04/17 12:45 09/11/17 12:44 GI: Plan Problems: (1) Alzheimer's dementia (2) Diarrhea (3) Toxic metabolic encephalopathy (4) Dehydration (5) Episode of generalized weakness Plan anemia work up OB stool r/o GI bleed send for cdiff monitor H&H, prn transfusions bowel regime H2B electrolyte correction fu labs Discussed with Dr. Benito. Thank you for this patient referral, we will follow. KATHE BENITO 09/05/17 0904: History of Present Illness General Reason for Hospitalization: Chest Pain Present Illness Home Meds Reported Medications Multivit-Min/FA/Lycopen/Lutein (CENTRUM SILVER MEN TABLET) 1 Each Tablet, 1 EACH PO, TAB 09/04/17 Manav Cit/Mag/D3/Zn/On Site Coordinator/Yonny/Bor (CITRACAL-VIT D + MAGNESIUM TAB) 1 Each Tablet, 1 EACH PO, TAB 09/04/17 Loperamide HCl (IMODIUM A-D) 2 Mg Capsule, 2 MG PO, CAP 09/04/17 Lactulose (LACTULOSE*) 20 Gm/30 Ml Solution, 30 ML ORAL, ML 0 Refills 09/04/17 Acetaminophen (Tylenol) 325 Mg Tablet, 650 MG ORAL EVERY 4 HOURS Y for Fever/ Headache/Mild Pain, #30 TAB 0 Refills 05/20/16 Polyethylene Glycol 3350* (POLYETHYLENE GLYCOL 3350*) 17 Gm Powd.pack, 17 GM ORAL BEDTIME Y for Constipation, PACKET 05/20/16 Nitroglycerin (NITROGLYCERIN) 0.4 Mg Tab.subl, 0.4 MG SL q5mins x3 doses prn , TAB 05/20/16 Nitroglycerin (NITROGLYCERIN) 0.4 Mg Tab.subl, 0.4 MG SL q5m x3 doses prn, TAB 05/20/16 Magnesium Hydroxide* (MILK OF MAGNESIA*) 400 Mg/5 Ml Oral.susp, 30 ML ORAL DAILY , ML 05/20/16 Divalproex Sodium (DIVALPROEX SODIUM) 125 Mg Cap.sprink, 125 MG PO EVERY 12 HOURS, CAP 05/20/16 Donepezil Hcl* (ARICEPT*) 5 Mg Tablet, 5 MG ORAL DAILY, TAB 8/27/16 Aspirin Ec* (ASPIRIN EC*) 81 Mg Tablet.dr, 81 MG ORAL DAILY, TAB 05/20/16 Docusate Sodium (DOCUSATE SODIUM) 100 Mg Tablet, 100 MG ORAL TWICE A DAY, #60 TAB 0 Refills 05/20/16 Olanzapine Zydis* (ZYPREXA ZYDIS*) 5 Mg Tab.rapdis, 5 MG ORAL DAILY, #30 TAB 0 Refills 05/20/16 Memantine Hcl* (NAMENDA*) 5 Mg Tablet, 5 MG ORAL TWICE A DAY, TAB 05/20/16 Amlodipine Besylate* (AMLODIPINE BESYLATE*) 10 Mg Tablet, 10 MG ORAL DAILY, TAB 05/17/16 Allergies: Coded Allergies: No Known Allergies (Unverified , 05/17/16) GI: Plan Plan The patient was seen and examined at bedside and all new and available data was reviewed in the patients chart. I agree with the above findings, impression and plan. (Patient seen earlier today. Signature stamp does not reflect patient encounter time.). - MD Anisa Marino Anh Cristofer Perry Sep 04, 2017 16:29 KATHE BENITO Sep 05, 2017 09:04
--- NOTE | 2017-09-04 17:12 | Diagnostic Imaging Report ---
Indication: Reason For Exam: CP Technique: One view of the chest Comparison: 05/18/2016 Findings: Suboptimal inspiration. Gas-filled borderline distended colon is again demonstrated. Basilar atelectatic changes and elevation of left hemidiaphragm are again demonstrated. The heart size is upper limits of normal. No definite acute infiltrates or effusions. Impression: No definite acute process. Findings as noted
[2017-09-04] MEDS: Memantine 5 MG TAB ORAL SCH (17:43)
--- NOTE | 2017-09-04 19:39 | History & Physical ---
History and Physical History & Physicial Dictated for Int Med-Dr Stevens no. [id number]. DEEPTHI SZYMANSKI Sep 04, 2017 19:39
[2017-09-04 20:00] VITALS: BP 132/72
--- NOTE | 2017-09-04 21:31 | Consultation ---
DATE OF CONSULTATION: 09/04/2017 CARDIOLOGY CONSULTATION REASON FOR EVALUATION: Chest pain. HISTORY OF PRESENT ILLNESS: The patient is an 87-year-old gentleman who is really not able to provide any meaningful history whatsoever. Information is obtained from the patient's chart. Apparently, the patient was brought in by his son to the emergency room. According to the emergency room data, the patient was complaining of chest pain for approximately five days, but was denying any chest pain at the time the patient was seen by the ER physician. Apparently, chest pain was intermittent, midsternal, and nonradiating. He denied any shortness of breath. No fevers. No chills. No cough. He has also complained of diarrhea for about five days. He was feeling weak with poor appetite. There was no recent travels or sick contacts. No relieving or exacerbating factors identified. At this time, otherwise, no information is further available. PAST MEDICAL HISTORY: The patient's old chart indicated that his past medical history is positive for episodes of severe weakness secondary to urinary tract infection, toxic metabolic encephalopathy, dementia, dehydration, hypertension, calcified meningioma left side, progressive cognitive dysfunction, and degenerative joint disease according to the chart. ALLERGIES: There are no allergies to medications. SOCIAL HISTORY: Smoker of 10 to [id number] history. No alcohol at this time. He apparently lives with the family. There is no substance abuse. REVIEW OF SYSTEMS: Unable to obtain. PHYSICAL EXAMINATION: GENERAL: Shows to be elderly gentleman, responsive, and follows some simple commands, but really not able to communicate much. VITAL SIGNS: The patient's blood pressure is anywhere between 117/51 to 138/68, heart rate in the 50s to 70s, and temperature 97 degrees. NECK: Supple. No jugular venous distention. LUNGS: Clear to auscultation and percussion. CARDIAC: S1 is normal. S2 is normal. Regular rate and rhythm. No heaves, thrills, gallops, or rubs. ABDOMEN: Soft and nontender. Positive bowel sounds. EXTREMITIES: There is no edema. Pneumatic compression stockings are in place. LABORATORY DATA: Laboratories showed white count of 7.5, hemoglobin 13.2, and a platelet count of 242,000. Sodium is 147, potassium 2.7, chloride 110, bicarbonate 26, BUN 20, creatinine 1.0, and glucose of 111. Total CK of 140. Troponin 0. BNP is 248 and albumin of 3.8. Urinalysis is 0 to 2 RBCs and 2 to 4 WBCs. He did not have any x-rays here. The patient's electrocardiogram available in the chart shows sinus rhythm with premature atrial complexes and lot of motion artifacts identified on this EKG. ASSESSMENT: 1. Reported chest pains. 2. Electrolyte abnormalities including hypernatremia and hypokalemia. 3. Dementia. 4. Possible encephalopathy. 5. Premature atrial complexes. PLAN: Dr. Aguila, this patient was seen in cardiac consultation. He reported to have some chest pain. No significant abnormalities on the electrocardiogram nor on the first set of cardiac enzymes. Repeat cardiac enzymes are pending. Echocardiogram will be ordered for reevaluation. Hopefully, the patient will become more awake so that he can answer questions about status of his chest pain. I will follow the patient along with you. Thong Deluna M.D. DR: AMBER JOB#: [id number] CC:
[2017-09-04] MEDS: Depakote 125mg Sprinkles ORAL SCH (21:49)
[2017-09-04] MEDS: Heparin 5000 units/ml inj SUBQ SCH (21:51)
[2017-09-05] VITALS: BP 123/77
[2017-09-05 04:00] VITALS: BP 141/86
--- NOTE | 2017-09-05 05:15 | History and Physical Report ---
DATE OF ADMISSION: 09/04/2017 CHIEF COMPLAINT: The patient is an 87-year-old male, who presents with chief complaint of chest pain. HISTORY OF PRESENT ILLNESS: Began five days prior to admission. The patient began to experience chest pain. Chest pain is on and off. Chest pain is substernal. There is no radiation to the jaw or to the left shoulder. The patient presented to [place] emergency room. The patient is admitted for chest pain to rule out acute coronary syndrome. PAST MEDICAL HISTORY: Significant for: 1. Hypertension. 2. Alzheimer's dementia. PAST SURGICAL HISTORY: The patient denies. CURRENT MEDICATIONS: 1. Amlodipine 10 mg one tablet p.o. daily. 2. Enteric-coated aspirin 81 mg one tablet p.o. daily. 3. Citracal plus D one tablet p.o. daily. 4. Depakote 125 mg p.o. q.12 h. 5. Aricept 5 mg one tablet p.o. daily. 6. Lactulose 30 mL p.o. daily. 7. Namenda 5 mg one tablet p.o. twice daily. 8. Multivitamin daily. 9. Nitroglycerin 0.4 mg p.r.n. 10. Zyprexa 5 mg p.o. daily. ALLERGIES: No known drug allergies. SOCIAL HISTORY: The patient lives with his adult son. The patient denies tobacco use, having previously quit. The patient denies alcohol use. REVIEW OF SYSTEMS: CONSTITUTIONAL: The patient denies weight loss or weight gain. The patient denies fevers or chills. HEENT: The patient denies ear or throat pain. The patient denies headache. CARDIOVASCULAR: The patient complains of chest pain as above. The patient denies palpitations. ABDOMINAL: The patient denies nausea, vomiting, diarrhea, or constipation. GENITOURINARY: The patient denies dysuria or increased frequency of urination. CHEST: The patient denies wheezes or shortness of breath. NEUROLOGIC: The patient denies seizures or generalized weakness. PHYSICAL EXAMINATION: VITAL SIGNS: Temperature 97.2, respirations 24, pulse 78, and blood pressure 128/45. GENERAL: The patient is a well-developed and well-nourished male, in no apparent distress. HEENT: Eyes, pupils are equal and responsive to light and accommodation. Extraocular movements are intact. NECK: Supple. No lymphadenopathy. CHEST: Lungs are clear to auscultation bilaterally without wheezes or rales. CARDIOVASCULAR: Regular rhythm and rate. S1 and S2 are normal without murmurs, rubs, or gallops. ABDOMEN: Soft, nontender, and nondistended. Positive bowel sounds. No evidence of hepatosplenomegaly. Currently, no rebound or guarding noted. EXTREMITIES: Negative for clubbing, cyanosis, or edema. RECTAL: Refused. GENITAL: Refused. NEUROLOGIC: Cranial nerves II through XII are grossly intact without focal deficits. Motor strength is 5/5 bilaterally. Deep tendon reflexes are 2+ plantar. LABORATORY STUDIES: WBC 7.5, hemoglobin 13.2, hematocrit 38.9, and platelets 242,000. Sodium 147, potassium 2.7, chloride 110, CO2 26, BUN 28, creatinine 1.0, and glucose 111. Troponin 0.0. BNP elevated at 248. ASSESSMENT: This is an 87-year-old male with: 1. Chest pain. 2. Hypertension. 3. Alzheimer's dementia. 4. Hypokalemia. TREATMENT: 1. Chest pain. A Cardiology consultation has been obtained by Dr. Thong Deluna. Serial troponin levels will be performed. We will follow recommendations of Cardiology concerning nuclear medicine stress test. 2. Alzheimer's dementia. Continue Aricept and Namenda as above. 3. Hypertension. Continue Norvasc as above. 4. Hypokalemia. The patient has received intravenous potassium. Andrew Das M.D. DR: MEMO JOB#: [id number] CC:
[2017-09-05 08:00] VITALS: BP 129/100
[2017-09-05 08:17] LABS: BASOPHILS % (AUTO) 1.2 % (0.0-2.0); LYMPHOCYTES % (AUTO) 20.8 % (20.0-45.0); MEAN CORPUSCULAR HEMOGLOBIN 30.1 PG (27.0-31.0); MEAN CORPUSCULAR HGB CONC 31.3 G/DL (32.0-36.0); MEAN CORPUSCULAR VOLUME 96 FL (80-99); MEAN PLATELET VOLUME 5.8 FL (6.5-10.1); MONOCYTES % (AUTO) 8.1 % (1.0-10.0); NEUTROPHILS % (AUTO) 66.9 % (45.0-75.0); PLATELET COUNT 203 K/UL (150-450); RED BLOOD COUNT 4.21 M/UL (4.70-6.10); RED CELL DISTRIBUTION WIDTH 12.4 % (11.6-14.8); WHITE BLOOD COUNT 7.5 K/UL (4.8-10.8)
[2017-09-05 08:42] LABS: INR 1.1 (0.9-1.1); PROTHROMBIN TIME 11.2 SEC (9.30-11.50)
[2017-09-05] MEDS: ZyPREXA Zydis 5mg tab ORAL SCH (08:50)
[2017-09-05] MEDS: Donepezil 5mg Tab ORAL SCH (08:51)
[2017-09-05] MEDS: Aspirin Baby 81mg ORAL SCH (08:51)
[2017-09-05] MEDS: Memantine 5 MG TAB ORAL SCH ×2 (08:51→17:20)
[2017-09-05] MEDS: Depakote 125mg Sprinkles ORAL SCH ×2 (08:51→21:13)
[2017-09-05 08:52] LABS: CHOLESTEROL 163 MG/DL (< 200); CHOLESTEROL/HDL RATIO 2.7 (3.3-4.4); THYROID STIMULATING HORMONE 1.233 uiU/mL (0.358-3.740)
[2017-09-05] MEDS: Heparin 5000 units/ml inj SUBQ SCH ×2 (08:52→21:14)
[2017-09-05 08:54] LABS: ALANINE AMINOTRANSFERASE 39 U/L (12-78); ALBUMIN/GLOBULIN RATIO 1.1 (1.0-2.7); ANION GAP 12 mmol/L (5-15); ASPARTATE AMINO TRANSFERASE 29 U/L (15-37); CALCIUM 9.3 MG/DL (8.5-10.1); CARBON DIOXIDE 25 MMOL/L (21-32); CHLORIDE 111 MMOL/L (98-107); CREATININE 0.8 MG/DL (0.55-1.30); SODIUM 148 MMOL/L (136-145); TOTAL PROTEIN 7.2 G/DL (6.4-8.2)
[2017-09-05 09:02] LABS: CRP QUANT < 0.4 mg/dL (0.00-0.90)
[2017-09-05 09:04] LABS: POTASSIUM 2.6 MMOL/L (3.5-5.1)
[2017-09-05 09:29] LABS: IRON 67 ug/dL (50-175); TOTAL IRON BINDING CAPACITY 263 ug/dL (250-450)
[2017-09-05 10:13] LABS: FOLIC ACID 32.3 NG/ML (8.6-58.9)
--- NOTE | 2017-09-05 10:25 | GI Progress Note ---
Assessment/Plan Problems: (1) Alzheimer's dementia ICD Codes: G30.9 - Alzheimer's disease, unspecified SNOMED: 49567256 Qualifiers: Qualified Codes: G30.9 - Alzheimer's disease, unspecified; F02.80 - Dementia in other diseases classified elsewhere without behavioral disturbance (2) Diarrhea ICD Codes: R19.7 - Diarrhea, unspecified SNOMED: 99216183 Qualifiers: Qualified Codes: R19.7 - Diarrhea, unspecified (3) Toxic metabolic encephalopathy ICD Codes: G92 - Toxic encephalopathy SNOMED: 090150120 (4) Episode of generalized weakness ICD Codes: R53.1 - Weakness SNOMED: 66416604 (5) Dehydration ICD Codes: E86.0 - Dehydration SNOMED: 82248566 Status: unchanged Status Narrative Discussed with Dr. Chauhan. Assessment/Plan symptomatic treatment OB stool r/o GI bleed defer cdiff, no diarrhea reported >> start bowel regime monitor H&H, prn transfusions bowel regime H2B electrolyte correction PT/OT eval fu labs The patient was seen and examined at bedside and all new and available data was reviewed in the patients chart. I agree with the above findings, impression and plan. (Patient seen earlier today. Signature stamp does not reflect patient encounter time.). - Moises Chauhan MD Subjective Subjective limited Objective Last 24 Hour Vital Signs Date Time Temp Pulse Resp B/P (MAP) Pulse Ox O2 Delivery O2 Flow Rate FiO2 09/05/17 08:51 70 129/100 09/05/17 08:00 97.1 19 129/100 Room Air 09/05/17 07:30 79 09/05/17 04:00 77 09/05/17 04:00 97.3 54 20 141/86 95 Room Air 09/05/17 00:00 91 09/05/17 00:00 97.9 55 20 123/77 94 Room Air 09/04/17 20:00 82 09/04/17 20:00 97.7 56 20 132/72 97 Room Air 09/04/17 16:35 67 09/04/17 16:00 97.6 80 19 157/60 Room Air 2.0 09/04/17 13:35 98.0 60 15 117/51 95 Room Air 09/04/17 13:20 98.0 60 15 117/51 95 Room Air 09/04/17 12:40 98.0 70 17 138/68 96 Room Air 09/04/17 10:45 78 24 Room Air 09/04/17 10:45 97.2 65 19 128/45 97 Room Air 09/04/17 10:35 97.2 78 24 129/64 98 Room Air Laboratory Tests Test 09/04/17 11:00 09/04/17 11:26 09/05/17 07:20 White Blood Count 7.5 K/UL (4.8-10.8) 7.5 K/UL (4.8-10.8) Red Blood Count 4.06 M/UL (4.70-6.10) L 4.21 M/UL (4.70-6.10) L Hemoglobin 13.2 G/DL (14.2-18.0) L 12.7 G/DL (14.2-18.0) L Hematocrit 38.9 % (42.0-52.0) L 40.4 % (42.0-52.0) L Mean Corpuscular Volume 96 FL (80-99) 96 FL (80-99) Mean Corpuscular Hemoglobin 32.4 PG (27.0-31.0) H 30.1 PG (27.0-31.0) Mean Corpuscular Hemoglobin Concent 33.8 G/DL (32.0-36.0) 31.3 G/DL (32.0-36.0) L Red Cell Distribution Width 12.4 % (11.6-14.8) 12.4 % (11.6-14.8) Platelet Count 242 K/UL (150-450) 203 K/UL (150-450) Mean Platelet Volume 6.3 FL (6.5-10.1) L 5.8 FL (6.5-10.1) L Neutrophils (%) (Auto) 67.1 % (45.0-75.0) 66.9 % (45.0-75.0) Lymphocytes (%) (Auto) 19.8 % (20.0-45.0) L 20.8 % (20.0-45.0) Monocytes (%) (Auto) 8.9 % (1.0-10.0) 8.1 % (1.0-10.0) Eosinophils (%) (Auto) 2.7 % (0.0-3.0) 3.0 % (0.0-3.0) Basophils (%) (Auto) 1.6 % (0.0-2.0) 1.2 % (0.0-2.0) Sodium Level 147 MMOL/L (136-145) H 148 MMOL/L (136-145) H Potassium Level 2.7 MMOL/L (3.5-5.1) *L 2.6 MMOL/L (3.5-5.1) *L Chloride Level 110 MMOL/L (98-107) H 111 MMOL/L (98-107) H Carbon Dioxide Level 26 MMOL/L (21-32) 25 MMOL/L (21-32) Anion Gap 11 mmol/L (5-15) 12 mmol/L (5-15) Blood Urea Nitrogen 28 mg/dL (7-18) H 20 mg/dL (7-18) H Creatinine 1.0 MG/DL (0.55-1.30) 0.8 MG/DL (0.55-1.30) Estimat Glomerular Filtration Rate mL/min (>60) mL/min (>60) Glucose Level 111 MG/DL (74-106) H 89 MG/DL (74-106) Calcium Level 9.3 MG/DL (8.5-10.1) 9.3 MG/DL (8.5-10.1) Total Bilirubin 0.7 MG/DL (0.2-1.0) 0.9 MG/DL (0.2-1.0) Aspartate Amino Transf (AST/SGOT) 23 U/L (15-37) 29 U/L (15-37) Alanine Aminotransferase (ALT/SGPT) 33 U/L (12-78) 39 U/L (12-78) Alkaline Phosphatase 50 U/L (46-116) 52 U/L (46-116) Total Creatine Kinase 115 U/L (26-308) Creatine Kinase MB 3.9 NG/ML (0.0-3.6) H Creatine Kinase MB Relative Index 3.3 Troponin I 0.000 ng/mL (0.000-0.056) 0.003 ng/mL (0.000-0.056) Pro-B-Type Natriuretic Peptide 248 pg/mL (0-125) H 222 pg/mL (0-125) H Total Protein 7.3 G/DL (6.4-8.2) 7.2 G/DL (6.4-8.2) Albumin 3.8 G/DL (3.4-5.0) 3.7 G/DL (3.4-5.0) Globulin 3.5 g/dL 3.5 g/dL Albumin/Globulin Ratio 1.1 (1.0-2.7) 1.1 (1.0-2.7) Urine Color Yellow Urine Appearance Clear Urine pH 5 (4.5-8.0) Urine Specific [place] 1.020 (1.005-1.035) Urine Protein 2+ (NEGATIVE) H Urine Glucose (UA) Negative (NEGATIVE) Urine Ketones 2+ (NEGATIVE) H Urine Occult Blood Negative (NEGATIVE) Urine Nitrite Negative (NEGATIVE) Urine Bilirubin Negative (NEGATIVE) Urine Urobilinogen 1 MG/DL (0.0-1.0) H Urine Leukocyte Esterase 1+ (NEGATIVE) H Urine RBC 0-2 /HPF (0 - 0) H Urine WBC 2-4 /HPF (0 - 0) Urine Squamous Epithelial Cells Occasional /LPF Urine Bacteria Occasional /HPF (NONE) Urine Mucus Few /LPF (NONE/OCC) H Reticulocyte Count 0.6 % (0.0-2.0) Prothrombin Time 11.2 SEC (9.30-11.50) Prothromb Time International Ratio 1.1 (0.9-1.1) Activated Partial Thromboplast Time 29 SEC (23-33) Iron Level 67 ug/dL (50-175) Total Iron Binding Capacity 263 ug/dL (250-450) Percent Iron Saturation 26 % (15-50) Unsaturated Iron Binding 196 ug/dL (112-346) C-Reactive Protein, Quantitative < 0.4 mg/dL (0.00-0.90) Triglycerides Level 84 MG/DL (30-150) Cholesterol Level 163 MG/DL (< 200) LDL Cholesterol 98 mg/dL (<100) HDL Cholesterol 60 MG/DL (40-60) Cholesterol/HDL Ratio 2.7 (3.3-4.4) L Vitamin B12 Level 471 PG/ML (193-986) Folate 32.3 NG/ML (8.6-58.9) Thyroid Stimulating Hormone (TSH) 1.233 uiU/mL (0.358-3.740) Free Thyroxine 1.43 NG/DL (0.76-1.46) Height (Feet): 5 Height (Inches): 7.00 Weight (Pounds): 150 General Appearance: WD/WN, no apparent distress, alert - dementia Cardiovascular: normal rate Respiratory/Chest: normal breath sounds, no respiratory distress Abdominal Exam: normal bowel sounds, non tender, soft Extremities: normal range of motion, non-tender, other - generalized weakness Maggi Lange N.P. Sep 05, 2017 10:25 KATHE CHAUHAN Sep 07, 2017 08:37
[2017-09-05 12:00] VITALS: BP 130/90
--- NOTE | 2017-09-05 12:28 | Internal Med Progress Note ---
Subjective Date of Service: Sep 05, 2017 Physician Name Deepthi Szymanski Attending Physician Darvin Stevens MD Current Medications Medications (Trade) Dose Ordered Sig/Nicolle Route PRN Reason Start Time Stop Time Status Last Admin Dose Admin Acetaminophen (Tylenol) 650 mg Q4H PRN ORAL FEVER 09/04/17 12:45 10/04/17 12:44 Albuterol/ Ipratropium (Albuterol/ Ipratropium) 3 ml EVERY 4 HOURS PRN HHN Shortness of Breath 09/04/17 12:45 09/09/17 12:44 Amlodipine Besylate (Norvasc) 10 mg DAILY ORAL 09/05/17 09:00 10/05/17 08:59 09/05/17 08:51 Aspirin (ASA) 162 mg DAILY ORAL 09/05/17 09:00 10/05/17 08:59 09/05/17 08:51 Diltiazem HCl (Cardizem) 10 mg EVERY HOUR PRN IV heart rate more than 120, 09/04/17 12:45 10/04/17 12:44 Divalproex Sodium (Depakote Sprinkles) 125 mg EVERY 12 HOURS ORAL 09/04/17 21:00 10/04/17 20:59 09/05/17 08:51 Docusate Sodium (Colace) 100 mg TWICE A DAY ORAL 09/05/17 18:00 10/05/17 17:59 Donepezil HCl (Aricept) 5 mg DAILY ORAL 09/05/17 09:00 10/05/17 08:59 09/05/17 08:51 Enalaprilat (Vasotec) 2.5 mg EVERY 6 HOURS PRN IV sbp more than 160 09/04/17 12:45 10/04/17 12:44 Heparin Sodium (Porcine) (Heparin 5000 units/ml) 5,000 units EVERY 12 HOURS SUBQ 09/04/17 21:00 10/04/17 20:59 09/05/17 08:52 Ketorolac Tromethamine (Toradol 30mg) 30 mg Q6HR PRN IV moderate pain ( 4-6) 09/04/17 12:45 09/09/17 12:44 Memantine (Namenda) 5 mg TWICE A DAY ORAL 09/04/17 18:00 10/04/17 17:59 09/05/17 08:51 Morphine Sulfate (Morphine Sulfate) 2 mg EVERY 4 HOURS PRN IVP severe Pain (Pain Scale 7-10) 09/04/17 12:45 09/11/17 12:44 Nitroglycerin (Ntg) 0.4 mg Q5M PRN SL Prn Chest Pain 09/04/17 12:45 10/04/17 12:44 Olanzapine (ZyPREXA Zydis) 5 mg DAILY ORAL 09/05/17 09:00 10/05/17 08:59 09/05/17 08:50 Ondansetron HCl (Zofran) 4 mg Q6H PRN IVP Nausea & Vomiting 09/04/17 12:45 10/04/17 12:44 Polyethylene Glycol (Miralax) 17 gm DAILYPRN PRN ORAL Constipation 09/04/17 12:45 10/04/17 12:44 Potassium Chloride (K-Dur) 40 meq Q8H ORAL 09/05/17 10:00 09/06/17 02:01 09/05/17 10:30 Temazepam (Restoril) 15 mg HSPRN PRN ORAL Insomnia 09/04/17 12:45 09/11/17 12:44 09/05/17 00:10 Allergies: Coded Allergies: No Known Allergies (Unverified , 05/17/16) ROS Limited/Unobtainable: No Constitutional: Reports: no symptoms HEENT: Reports: no symptoms Cardiovascular: Reports: chest pain Respiratory: Reports: no symptoms Gastrointestinal/Abdominal: Reports: no symptoms Genitourinary: Reports: no symptoms Neurologic/Psychiatric: Reports: no symptoms Subjective 87 YO M admitted with chest pain. Cover for Int Nicolas-Dr Stevens. Objective Last Vital Signs Date Time Temp Pulse Resp B/P (MAP) Pulse Ox O2 Delivery O2 Flow Rate FiO2 09/05/17 08:51 70 129/100 09/05/17 08:00 97.1 19 Room Air 09/05/17 04:00 95 09/04/17 16:00 2.0 General Appearance: WD/WN, no apparent distress, alert EENT: PERRL/EOMI, normal ENT inspection Neck: non-tender, normal alignment, supple, normal inspection Cardiovascular: normal peripheral pulses, normal rate, regular rhythm, no gallop/murmur, no JVD Respiratory/Chest: chest wall non-tender, lungs clear, normal breath sounds, no respiratory distress, no accessory muscle use Abdomen: normal bowel sounds, non tender, soft, no organomegaly, no mass, abnormal bowel sounds Extremities: normal range of motion Neurologic: general practitioner II-XII grossly normal, no motor/sensory deficits Skin: normal pigmentation, warm/dry Laboratory Tests Test 09/05/17 07:20 White Blood Count 7.5 K/UL (4.8-10.8) Red Blood Count 4.21 M/UL (4.70-6.10) L Hemoglobin 12.7 G/DL (14.2-18.0) L Hematocrit 40.4 % (42.0-52.0) L Mean Corpuscular Volume 96 FL (80-99) Mean Corpuscular Hemoglobin 30.1 PG (27.0-31.0) Mean Corpuscular Hemoglobin Concent 31.3 G/DL (32.0-36.0) L Red Cell Distribution Width 12.4 % (11.6-14.8) Platelet Count 203 K/UL (150-450) Mean Platelet Volume 5.8 FL (6.5-10.1) L Neutrophils (%) (Auto) 66.9 % (45.0-75.0) Lymphocytes (%) (Auto) 20.8 % (20.0-45.0) Monocytes (%) (Auto) 8.1 % (1.0-10.0) Eosinophils (%) (Auto) 3.0 % (0.0-3.0) Basophils (%) (Auto) 1.2 % (0.0-2.0) Reticulocyte Count 0.6 % (0.0-2.0) Prothrombin Time 11.2 SEC (9.30-11.50) Prothromb Time International Ratio 1.1 (0.9-1.1) Activated Partial Thromboplast Time 29 SEC (23-33) Sodium Level 148 MMOL/L (136-145) H Potassium Level 2.6 MMOL/L (3.5-5.1) *L Chloride Level 111 MMOL/L (98-107) H Carbon Dioxide Level 25 MMOL/L (21-32) Anion Gap 12 mmol/L (5-15) Blood Urea Nitrogen 20 mg/dL (7-18) H Creatinine 0.8 MG/DL (0.55-1.30) Estimat Glomerular Filtration Rate mL/min (>60) Glucose Level 89 MG/DL (74-106) Calcium Level 9.3 MG/DL (8.5-10.1) Iron Level 67 ug/dL (50-175) Total Iron Binding Capacity 263 ug/dL (250-450) Percent Iron Saturation 26 % (15-50) Unsaturated Iron Binding 196 ug/dL (112-346) Total Bilirubin 0.9 MG/DL (0.2-1.0) Aspartate Amino Transf (AST/SGOT) 29 U/L (15-37) Alanine Aminotransferase (ALT/SGPT) 39 U/L (12-78) Alkaline Phosphatase 52 U/L (46-116) Troponin I 0.003 ng/mL (0.000-0.056) C-Reactive Protein, Quantitative < 0.4 mg/dL (0.00-0.90) Pro-B-Type Natriuretic Peptide 222 pg/mL (0-125) H Total Protein 7.2 G/DL (6.4-8.2) Albumin 3.7 G/DL (3.4-5.0) Globulin 3.5 g/dL Albumin/Globulin Ratio 1.1 (1.0-2.7) Triglycerides Level 84 MG/DL (30-150) Cholesterol Level 163 MG/DL (< 200) LDL Cholesterol 98 mg/dL (<100) HDL Cholesterol 60 MG/DL (40-60) Cholesterol/HDL Ratio 2.7 (3.3-4.4) L Vitamin B12 Level 471 PG/ML (193-986) Folate 32.3 NG/ML (8.6-58.9) Thyroid Stimulating Hormone (TSH) 1.233 uiU/mL (0.358-3.740) Free Thyroxine 1.43 NG/DL (0.76-1.46) Assessment/Plan Problem List: (1) Chest pain Assessment & Plan: Caridology workup in progress - see cardiology note. (2) Toxic metabolic encephalopathy (3) Alzheimer's dementia Assessment & Plan: Continue aricept and namenda (4) Hypokalemia Assessment & Plan: replace K+ (5) Hypertension Assessment & Plan: continue vasotec and diltiazem Status: not improved DEEPTHI SZYMANSKI Sep 05, 2017 12:28
[2017-09-05 16:00] VITALS: BP 123/73
[2017-09-05] MEDS: Docusate 100mg cap ORAL SCH (17:20)
[2017-09-05 20:20] VITALS: BP 152/70
--- NOTE | 2017-09-05 20:45 | Cardiology Progress Note ---
Assessment/Plan Assessment/Plan 1. Reported chest pains. 2. Electrolyte abnormalities including hypernatremia and hypokalemia. 3. Dementia. 4. Possible encephalopathy. 5. Premature atrial complexes. na is better k supplemetn trop neg on repat is more awake but still confused nto able to provide acoherent information cheng sinus , pac Subjective ROS Limited/Unobtainable: Yes Cardiovascular: Denies: chest pain Respiratory: Denies: SOB with excertion Gastrointestinal/Abdominal: Denies: abdominal pain Objective Last 24 Hour Vital Signs Date Time Temp Pulse Resp B/P (MAP) Pulse Ox O2 Delivery O2 Flow Rate FiO2 09/05/17 16:53 63 09/05/17 16:00 97.5 60 19 123/73 Nasal Cannula 2.0 09/05/17 12:00 97.4 70 19 130/90 Room Air 09/05/17 11:47 60 09/05/17 08:51 70 129/100 09/05/17 08:00 97.1 19 129/100 Room Air 09/05/17 07:30 79 09/05/17 04:00 77 09/05/17 04:00 97.3 54 20 141/86 95 Room Air 09/05/17 00:00 91 09/05/17 00:00 97.9 55 20 123/77 94 Room Air General Appearance: alert Neck: supple Cardiovascular: normal rate, regular rhythm Respiratory/Chest: lungs clear Abdomen: normal bowel sounds, non tender, soft Extremities: no swelling Laboratory Tests Test 09/05/17 07:20 09/05/17 14:55 White Blood Count 7.5 K/UL (4.8-10.8) Red Blood Count 4.21 M/UL (4.70-6.10) L Hemoglobin 12.7 G/DL (14.2-18.0) L Hematocrit 40.4 % (42.0-52.0) L Mean Corpuscular Volume 96 FL (80-99) Mean Corpuscular Hemoglobin 30.1 PG (27.0-31.0) Mean Corpuscular Hemoglobin Concent 31.3 G/DL (32.0-36.0) L Red Cell Distribution Width 12.4 % (11.6-14.8) Platelet Count 203 K/UL (150-450) Mean Platelet Volume 5.8 FL (6.5-10.1) L Neutrophils (%) (Auto) 66.9 % (45.0-75.0) Lymphocytes (%) (Auto) 20.8 % (20.0-45.0) Monocytes (%) (Auto) 8.1 % (1.0-10.0) Eosinophils (%) (Auto) 3.0 % (0.0-3.0) Basophils (%) (Auto) 1.2 % (0.0-2.0) Reticulocyte Count 0.6 % (0.0-2.0) Prothrombin Time 11.2 SEC (9.30-11.50) Prothromb Time International Ratio 1.1 (0.9-1.1) Activated Partial Thromboplast Time 29 SEC (23-33) Sodium Level 148 MMOL/L (136-145) H Potassium Level 2.6 MMOL/L (3.5-5.1) *L Chloride Level 111 MMOL/L (98-107) H Carbon Dioxide Level 25 MMOL/L (21-32) Anion Gap 12 mmol/L (5-15) Blood Urea Nitrogen 20 mg/dL (7-18) H Creatinine 0.8 MG/DL (0.55-1.30) Estimat Glomerular Filtration Rate mL/min (>60) Glucose Level 89 MG/DL (74-106) Calcium Level 9.3 MG/DL (8.5-10.1) Iron Level 67 ug/dL (50-175) Total Iron Binding Capacity 263 ug/dL (250-450) Percent Iron Saturation 26 % (15-50) Unsaturated Iron Binding 196 ug/dL (112-346) Total Bilirubin 0.9 MG/DL (0.2-1.0) Aspartate Amino Transf (AST/SGOT) 29 U/L (15-37) Alanine Aminotransferase (ALT/SGPT) 39 U/L (12-78) Alkaline Phosphatase 52 U/L (46-116) Troponin I 0.003 ng/mL (0.000-0.056) 0.011 ng/mL (0.000-0.056) C-Reactive Protein, Quantitative < 0.4 mg/dL (0.00-0.90) Pro-B-Type Natriuretic Peptide 222 pg/mL (0-125) H Total Protein 7.2 G/DL (6.4-8.2) Albumin 3.7 G/DL (3.4-5.0) Globulin 3.5 g/dL Albumin/Globulin Ratio 1.1 (1.0-2.7) Triglycerides Level 84 MG/DL (30-150) Cholesterol Level 163 MG/DL (< 200) LDL Cholesterol 98 mg/dL (<100) HDL Cholesterol 60 MG/DL (40-60) Cholesterol/HDL Ratio 2.7 (3.3-4.4) L Vitamin B12 Level 471 PG/ML (193-986) Folate 32.3 NG/ML (8.6-58.9) Thyroid Stimulating Hormone (TSH) 1.233 uiU/mL (0.358-3.740) Free Thyroxine 1.43 NG/DL (0.76-1.46) DAO HERRERA Sep 05, 2017 20:45
[2017-09-06 00:22] VITALS: BP 123/77
[2017-09-06 04:00] VITALS: BP 135/72
--- NOTE | 2017-09-06 05:01 | Diagnostic Imaging Report ---
Indications: 87-year-old male with cognitive impairment, chest pain, hypertension, Alzheimer's dementia Technique: Spiral acquisitions obtained through the brain. Angled axial and coronal 5 x 5 mm slices were reconstructed. Total dose length product 1439 mGycm. CTDI vol(s) 70 mGy. Dose reduction achieved using automated exposure control Comparison: 05/17/2016 Findings: Again demonstrated is marked age-related enlargement of the ventricles and extra axial CSF spaces. Again demonstrated is periventricular deep white matter low attenuation. Again demonstrated is a densely calcified mass in the left supraclinoid region also extending into the posterior and middle fossae which measures 3 x 2.7 cm in diameter. Is displaces the camacho and midbrain posteriorly, does not result in significant supratentorial mass effect. There is some encephalomalacia of the right occipital lobe. No acute hemorrhage or edema. No mass effect or midline shift. Otherwise normal taylor-white differentiation. 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 This results in mass effect upon the adjacent camacho and midbrain The CT scanner at [facility] is accredited by the [employer] and the scans are performed using protocols designed to limit radiation exposure to as low as reasonably achievable to attain images of sufficient resolution adequate for diagnostic evaluation.
[2017-09-06 07:29] LABS: BASOPHILS % (AUTO) 1.1 % (0.0-2.0); EOSINOPHILS % (AUTO) 2.8 % (0.0-3.0); LYMPHOCYTES % (AUTO) 18.4 % (20.0-45.0); MEAN CORPUSCULAR HEMOGLOBIN 32.2 PG (27.0-31.0); MEAN CORPUSCULAR HGB CONC 33.5 G/DL (32.0-36.0); MEAN CORPUSCULAR VOLUME 96 FL (80-99); MEAN PLATELET VOLUME 6.6 FL (6.5-10.1); NEUTROPHILS % (AUTO) 69.7 % (45.0-75.0); PLATELET COUNT 206 K/UL (150-450); RED BLOOD COUNT 3.87 M/UL (4.70-6.10); RED CELL DISTRIBUTION WIDTH 12.5 % (11.6-14.8); WHITE BLOOD COUNT 6.5 K/UL (4.8-10.8)
[2017-09-06 07:48] LABS: ANION GAP 9 mmol/L (5-15); CALCIUM 9.2 MG/DL (8.5-10.1); CARBON DIOXIDE 26 MMOL/L (21-32); CHLORIDE 116 MMOL/L (98-107); CREATININE 0.9 MG/DL (0.55-1.30); POTASSIUM 3.1 MMOL/L (3.5-5.1); SODIUM 151 MMOL/L (136-145)
[2017-09-06 08:12] VITALS: BP 132/76
[2017-09-06] MEDS: ZyPREXA Zydis 5mg tab ORAL SCH (08:31)
[2017-09-06] MEDS: Donepezil 5mg Tab ORAL SCH (08:31)
[2017-09-06] MEDS: Depakote 125mg Sprinkles ORAL SCH ×2 (08:31→20:55)
[2017-09-06] MEDS: Memantine 5 MG TAB ORAL SCH ×2 (08:31→17:26)
[2017-09-06] MEDS: Aspirin Baby 81mg ORAL SCH (08:31)
[2017-09-06] MEDS: Docusate 100mg cap ORAL SCH ×2 (08:31→17:26)
[2017-09-06] MEDS: Heparin 5000 units/ml inj SUBQ SCH ×2 (09:28→20:57)
--- NOTE | 2017-09-06 10:57 | GI Progress Note ---
Assessment/Plan Problems: (1) Alzheimer's dementia ICD Codes: G30.9 - Alzheimer's disease, unspecified SNOMED: 56409010 Qualifiers: Qualified Codes: G30.9 - Alzheimer's disease, unspecified; F02.80 - Dementia in other diseases classified elsewhere without behavioral disturbance (2) Diarrhea ICD Codes: R19.7 - Diarrhea, unspecified SNOMED: 43853561 Qualifiers: Qualified Codes: R19.7 - Diarrhea, unspecified (3) Toxic metabolic encephalopathy ICD Codes: G92 - Toxic encephalopathy SNOMED: 387910013 (4) Episode of generalized weakness ICD Codes: R53.1 - Weakness SNOMED: 65773482 (5) Dehydration ICD Codes: E86.0 - Dehydration SNOMED: 40678638 Status: unchanged Status Narrative Discussed with Dr. Chauhan. Assessment/Plan symptomatic treatment OB stool r/o GI bleed defer cdiff, no diarrhea reported >> bowel regime monitor H&H, prn transfusions H2B regular diet electrolyte correction PT/OT eval fu labs The patient was seen and examined at bedside and all new and available data was reviewed in the patients chart. I agree with the above findings, impression and plan. (Patient seen earlier today. Signature stamp does not reflect patient encounter time.). - Moises Chauhan MD Subjective Subjective limited Objective Last 24 Hour Vital Signs Date Time Temp Pulse Resp B/P (MAP) Pulse Ox O2 Delivery O2 Flow Rate FiO2 09/06/17 08:31 69 132/76 09/06/17 08:12 97.3 69 18 132/76 98 Room Air 09/06/17 08:00 69 09/06/17 04:00 63 09/06/17 04:00 97.5 70 20 135/72 96 Room Air 09/06/17 00:22 97.7 82 20 123/77 95 Room Air 09/06/17 00:00 73 09/05/17 20:20 97.0 71 20 152/70 94 09/05/17 20:00 81 09/05/17 16:53 63 09/05/17 16:00 97.5 60 19 123/73 Nasal Cannula 2.0 09/05/17 12:00 97.4 70 19 130/90 Room Air 09/05/17 11:47 60 Laboratory Tests Test 09/05/17 14:55 09/06/17 06:35 Troponin I 0.011 ng/mL (0.000-0.056) 0.004 ng/mL (0.000-0.056) White Blood Count 6.5 K/UL (4.8-10.8) Red Blood Count 3.87 M/UL (4.70-6.10) L Hemoglobin 12.5 G/DL (14.2-18.0) L Hematocrit 37.2 % (42.0-52.0) L Mean Corpuscular Volume 96 FL (80-99) Mean Corpuscular Hemoglobin 32.2 PG (27.0-31.0) H Mean Corpuscular Hemoglobin Concent 33.5 G/DL (32.0-36.0) Red Cell Distribution Width 12.5 % (11.6-14.8) Platelet Count 206 K/UL (150-450) Mean Platelet Volume 6.6 FL (6.5-10.1) Neutrophils (%) (Auto) 69.7 % (45.0-75.0) Lymphocytes (%) (Auto) 18.4 % (20.0-45.0) L Monocytes (%) (Auto) 8.0 % (1.0-10.0) Eosinophils (%) (Auto) 2.8 % (0.0-3.0) Basophils (%) (Auto) 1.1 % (0.0-2.0) Sodium Level 151 MMOL/L (136-145) H Potassium Level 3.1 MMOL/L (3.5-5.1) L Chloride Level 116 MMOL/L (98-107) H Carbon Dioxide Level 26 MMOL/L (21-32) Anion Gap 9 mmol/L (5-15) Blood Urea Nitrogen 21 mg/dL (7-18) H Creatinine 0.9 MG/DL (0.55-1.30) Estimat Glomerular Filtration Rate mL/min (>60) Glucose Level 88 MG/DL (74-106) Calcium Level 9.2 MG/DL (8.5-10.1) Height (Feet): 5 Height (Inches): 7.00 Weight (Pounds): 150 General Appearance: WD/WN, no apparent distress, alert Cardiovascular: normal rate Respiratory/Chest: normal breath sounds, no respiratory distress Abdominal Exam: normal bowel sounds, non tender, soft Extremities: normal range of motion - generalized weakness, non-tender Maggi Lange N.P. Sep 06, 2017 10:57 KATHE CHAUHAN Sep 07, 2017 08:56
--- NOTE | 2017-09-06 11:00 | Cardiology Report ---
APPROVED REPORT EKG Measurement Heart [id number] Sinus rhythm with premature atrial complexes with aberrant conduction Nonspecific T wave abnormality Abnormal ECG
--- NOTE | 2017-09-06 11:00 | Cardiology Report ---
APPROVED REPORT EKG Measurement Heart [id number] Sinus rhythm with premature atrial complexes Nonspecific T wave abnormality Abnormal ECG
--- NOTE | 2017-09-06 11:02 | Cardiology Report ---
APPROVED REPORT EXAM: Two-dimensional and M-mode echocardiogram with Doppler and color Doppler. INDICATION Left ventricular function Technically limited and difficult study due to poor acoustical windows. M-mode measurements not obtainable due to cardiac structure. Normal left ventricular chamber size, systolic function and wall motion. Left ventricular ejection fraction estimated to be 60-65%. No evidence of left ventricular hypertrophy. No evidence of pericardial or pleural effusion. All other cardiac chamber sizes are within normal limits. Focal aortic valve sclerosis with adequate cusp excursion. Thickened mitral valve leaflets with normal excursion. Mild mitral annulus and aortic root calcification. Pulmonic valve not well visualized. Normal tricuspid valve structure. IVC is not obtainable. A color flow and spectral Doppler study was performed and revealed: Probably mild aortic regurgitation. Trace mitral regurgitation. Mitral diastolic velocities suggest reduced left ventricular relaxation c/w diastolic dysfunction grade 1. No tricuspid regurgitation.
--- NOTE | 2017-09-06 11:45 | Pulmonology Progress Note ---
Assessment/Plan Problems: (1) ACS (acute coronary syndrome) (2) Toxic metabolic encephalopathy (3) Hypertension (4) Alzheimer's dementia (5) Diarrhea (6) Hypokalemia Assessment/Plan iv fluids pt/ot neuro evaluation check echo cardio evaluation appreciated check electrolytes Subjective ROS Limited/Unobtainable: No Interval Events: late note for 09/05 Constitutional: Reports: no symptoms HEENT: Repors: no symptoms Allergies: Coded Allergies: No Known Allergies (Unverified , 05/17/16) Objective Last 24 Hour Vital Signs Date Time Temp Pulse Resp B/P (MAP) Pulse Ox O2 Delivery O2 Flow Rate FiO2 09/06/17 08:31 69 132/76 09/06/17 08:12 97.3 69 18 132/76 98 Room Air 09/06/17 08:00 69 09/06/17 04:00 63 09/06/17 04:00 97.5 70 20 135/72 96 Room Air 09/06/17 00:22 97.7 82 20 123/77 95 Room Air 09/06/17 00:00 73 09/05/17 20:20 97.0 71 20 152/70 94 09/05/17 20:00 81 09/05/17 16:53 63 09/05/17 16:00 97.5 60 19 123/73 Nasal Cannula 2.0 09/05/17 12:00 97.4 70 19 130/90 Room Air 09/05/17 11:47 60 General Appearance: cachetic HEENT: normocephalic, atraumatic Respiratory/Chest: chest wall non-tender, lungs clear Cardiovascular: normal peripheral pulses, normal rate Abdomen: normal bowel sounds, soft, non tender, no organomegaly Laboratory Tests 09/05/17 14:55: Troponin I 0.011 09/06/17 06:35: Troponin I 0.004, White Blood Count 6.5, Red Blood Count 3.87L, Hemoglobin 12.5L , Hematocrit 37.2L, Mean Corpuscular Volume 96, Mean Corpuscular Hemoglobin 32.2H, Mean Corpuscular Hemoglobin Concent 33.5, Red Cell Distribution Width 12.5, Platelet Count 206, Mean Platelet Volume 6.6, Neutrophils (%) (Auto) 69.7 , Lymphocytes (%) (Auto) 18.4L, Monocytes (%) (Auto) 8.0, Eosinophils (%) (Auto ) 2.8, Basophils (%) (Auto) 1.1, Sodium Level 151H, Potassium Level 3.1L, Chloride Level 116H, Carbon Dioxide Level 26, Anion Gap 9, Blood Urea Nitrogen 21H, Creatinine 0.9, Estimat Glomerular Filtration Rate , Glucose Level 88, Calcium Level 9.2 Current Medications Medications (Trade) Dose Ordered Sig/Incolle Route PRN Reason Start Time Stop Time Status Last Admin Dose Admin Acetaminophen (Tylenol) 650 mg Q4H PRN ORAL FEVER 09/04/17 12:45 10/04/17 12:44 Albuterol/ Ipratropium (Albuterol/ Ipratropium) 3 ml EVERY 4 HOURS PRN HHN Shortness of Breath 09/04/17 12:45 09/09/17 12:44 Amlodipine Besylate (Norvasc) 10 mg DAILY ORAL 09/05/17 09:00 10/05/17 08:59 09/06/17 08:31 Aspirin (ASA) 162 mg DAILY ORAL 09/05/17 09:00 10/05/17 08:59 09/06/17 08:31 Diltiazem HCl (Cardizem) 10 mg EVERY HOUR PRN IV heart rate more than 120, 09/04/17 12:45 10/04/17 12:44 Divalproex Sodium (Depakote Sprinkles) 125 mg EVERY 12 HOURS ORAL 09/04/17 21:00 10/04/17 20:59 09/06/17 08:31 Docusate Sodium (Colace) 100 mg TWICE A DAY ORAL 09/05/17 18:00 10/05/17 17:59 09/06/17 08:31 Donepezil HCl (Aricept) 5 mg DAILY ORAL 09/05/17 09:00 10/05/17 08:59 09/06/17 08:31 Enalaprilat (Vasotec) 2.5 mg EVERY 6 HOURS PRN IV sbp more than 160 09/04/17 12:45 10/04/17 12:44 Heparin Sodium (Porcine) (Heparin 5000 units/ml) 5,000 units EVERY 12 HOURS SUBQ 09/04/17 21:00 10/04/17 20:59 09/06/17 09:28 Ketorolac Tromethamine (Toradol 30mg) 30 mg Q6HR PRN IV moderate pain ( 4-6) 09/04/17 12:45 09/09/17 12:44 Memantine (Namenda) 5 mg TWICE A DAY ORAL 09/04/17 18:00 10/04/17 17:59 09/06/17 08:31 Morphine Sulfate (Morphine Sulfate) 2 mg EVERY 4 HOURS PRN IVP severe Pain (Pain Scale 7-10) 09/04/17 12:45 09/11/17 12:44 Nitroglycerin (Ntg) 0.4 mg Q5M PRN SL Prn Chest Pain 09/04/17 12:45 10/04/17 12:44 Olanzapine (ZyPREXA Zydis) 5 mg DAILY ORAL 09/05/17 09:00 10/05/17 08:59 09/06/17 08:31 Ondansetron HCl (Zofran) 4 mg Q6H PRN IVP Nausea & Vomiting 09/04/17 12:45 10/04/17 12:44 Polyethylene Glycol (Miralax) 17 gm DAILYPRN PRN ORAL Constipation 09/04/17 12:45 10/04/17 12:44 Temazepam (Restoril) 15 mg HSPRN PRN ORAL Insomnia 09/04/17 12:45 09/11/17 12:44 09/05/17 00:10 DUNIA COLLINS Sep 06, 2017 11:45
--- NOTE | 2017-09-06 11:48 | Pulmonology Progress Note ---
Assessment/Plan Problems: (1) Toxic metabolic encephalopathy (2) ACS (acute coronary syndrome) (3) Hypertension (4) Alzheimer's dementia (5) Diarrhea (6) Hypokalemia Assessment/Plan iv fluids pt/ot evaluation noted. neuro evaluation check echo, EF 60% cardio evaluation appreciated check electrolytes Subjective ROS Limited/Unobtainable: No Interval Events: somnolent Allergies: Coded Allergies: No Known Allergies (Unverified , 05/17/16) Objective Last 24 Hour Vital Signs Date Time Temp Pulse Resp B/P (MAP) Pulse Ox O2 Delivery O2 Flow Rate FiO2 09/06/17 08:31 69 132/76 09/06/17 08:12 97.3 69 18 132/76 98 Room Air 09/06/17 08:00 69 09/06/17 04:00 63 09/06/17 04:00 97.5 70 20 135/72 96 Room Air 09/06/17 00:22 97.7 82 20 123/77 95 Room Air 09/06/17 00:00 73 09/05/17 20:20 97.0 71 20 152/70 94 09/05/17 20:00 81 09/05/17 16:53 63 09/05/17 16:00 97.5 60 19 123/73 Nasal Cannula 2.0 09/05/17 12:00 97.4 70 19 130/90 Room Air 09/05/17 11:47 60 General Appearance: WD/WN HEENT: atraumatic Respiratory/Chest: chest wall non-tender, lungs clear Cardiovascular: normal peripheral pulses, normal rate Abdomen: normal bowel sounds, no organomegaly Genitourinary: normal external genitalia Skin: no lesions Neurologic/Psychiatric: mdm developer II-XII grossly normal Laboratory Tests 09/05/17 14:55: Troponin I 0.011 09/06/17 06:35: Troponin I 0.004, White Blood Count 6.5, Red Blood Count 3.87L, Hemoglobin 12.5L , Hematocrit 37.2L, Mean Corpuscular Volume 96, Mean Corpuscular Hemoglobin 32.2H, Mean Corpuscular Hemoglobin Concent 33.5, Red Cell Distribution Width 12.5, Platelet Count 206, Mean Platelet Volume 6.6, Neutrophils (%) (Auto) 69.7 , Lymphocytes (%) (Auto) 18.4L, Monocytes (%) (Auto) 8.0, Eosinophils (%) (Auto ) 2.8, Basophils (%) (Auto) 1.1, Sodium Level 151H, Potassium Level 3.1L, Chloride Level 116H, Carbon Dioxide Level 26, Anion Gap 9, Blood Urea Nitrogen 21H, Creatinine 0.9, Estimat Glomerular Filtration Rate , Glucose Level 88, Calcium Level 9.2 Current Medications Medications (Trade) Dose Ordered Sig/Nicolle Route PRN Reason Start Time Stop Time Status Last Admin Dose Admin Acetaminophen (Tylenol) 650 mg Q4H PRN ORAL FEVER 09/04/17 12:45 10/04/17 12:44 Albuterol/ Ipratropium (Albuterol/ Ipratropium) 3 ml EVERY 4 HOURS PRN HHN Shortness of Breath 09/04/17 12:45 09/09/17 12:44 Amlodipine Besylate (Norvasc) 10 mg DAILY ORAL 09/05/17 09:00 10/05/17 08:59 09/06/17 08:31 Aspirin (ASA) 162 mg DAILY ORAL 09/05/17 09:00 10/05/17 08:59 09/06/17 08:31 Diltiazem HCl (Cardizem) 10 mg EVERY HOUR PRN IV heart rate more than 120, 09/04/17 12:45 10/04/17 12:44 Divalproex Sodium (Depakote Sprinkles) 125 mg EVERY 12 HOURS ORAL 09/04/17 21:00 10/04/17 20:59 09/06/17 08:31 Docusate Sodium (Colace) 100 mg TWICE A DAY ORAL 09/05/17 18:00 10/05/17 17:59 09/06/17 08:31 Donepezil HCl (Aricept) 5 mg DAILY ORAL 09/05/17 09:00 10/05/17 08:59 09/06/17 08:31 Enalaprilat (Vasotec) 2.5 mg EVERY 6 HOURS PRN IV sbp more than 160 09/04/17 12:45 10/04/17 12:44 Heparin Sodium (Porcine) (Heparin 5000 units/ml) 5,000 units EVERY 12 HOURS SUBQ 09/04/17 21:00 10/04/17 20:59 09/06/17 09:28 Ketorolac Tromethamine (Toradol 30mg) 30 mg Q6HR PRN IV moderate pain ( 4-6) 09/04/17 12:45 09/09/17 12:44 Memantine (Namenda) 5 mg TWICE A DAY ORAL 09/04/17 18:00 10/04/17 17:59 09/06/17 08:31 Morphine Sulfate (Morphine Sulfate) 2 mg EVERY 4 HOURS PRN IVP severe Pain (Pain Scale 7-10) 09/04/17 12:45 09/11/17 12:44 Nitroglycerin (Ntg) 0.4 mg Q5M PRN SL Prn Chest Pain 09/04/17 12:45 10/04/17 12:44 Olanzapine (ZyPREXA Zydis) 5 mg DAILY ORAL 09/05/17 09:00 10/05/17 08:59 09/06/17 08:31 Ondansetron HCl (Zofran) 4 mg Q6H PRN IVP Nausea & Vomiting 09/04/17 12:45 10/04/17 12:44 Polyethylene Glycol (Miralax) 17 gm DAILYPRN PRN ORAL Constipation 09/04/17 12:45 10/04/17 12:44 Temazepam (Restoril) 15 mg HSPRN PRN ORAL Insomnia 09/04/17 12:45 09/11/17 12:44 09/05/17 00:10 DUNIA COLLINS Sep 06, 2017 11:48
[2017-09-06 12:46] VITALS: BP 126/67
--- NOTE | 2017-09-06 14:45 | Neurology Progress Note ---
Interim History Interim History ROS Limited/Unobtainable: No Objective Physical Exam Last Vital Signs Date Time Temp Pulse Resp B/P (MAP) Pulse Ox O2 Delivery O2 Flow Rate FiO2 09/06/17 12:46 97.9 67 18 126/67 94 Room Air 09/05/17 16:00 2.0 Laboratory Tests Test 09/05/17 14:55 09/06/17 06:35 Troponin I 0.011 ng/mL (0.000-0.056) 0.004 ng/mL (0.000-0.056) White Blood Count 6.5 K/UL (4.8-10.8) Red Blood Count 3.87 M/UL (4.70-6.10) L Hemoglobin 12.5 G/DL (14.2-18.0) L Hematocrit 37.2 % (42.0-52.0) L Mean Corpuscular Volume 96 FL (80-99) Mean Corpuscular Hemoglobin 32.2 PG (27.0-31.0) H Mean Corpuscular Hemoglobin Concent 33.5 G/DL (32.0-36.0) Red Cell Distribution Width 12.5 % (11.6-14.8) Platelet Count 206 K/UL (150-450) Mean Platelet Volume 6.6 FL (6.5-10.1) Neutrophils (%) (Auto) 69.7 % (45.0-75.0) Lymphocytes (%) (Auto) 18.4 % (20.0-45.0) L Monocytes (%) (Auto) 8.0 % (1.0-10.0) Eosinophils (%) (Auto) 2.8 % (0.0-3.0) Basophils (%) (Auto) 1.1 % (0.0-2.0) Sodium Level 151 MMOL/L (136-145) H Potassium Level 3.1 MMOL/L (3.5-5.1) L Chloride Level 116 MMOL/L (98-107) H Carbon Dioxide Level 26 MMOL/L (21-32) Anion Gap 9 mmol/L (5-15) Blood Urea Nitrogen 21 mg/dL (7-18) H Creatinine 0.9 MG/DL (0.55-1.30) Estimat Glomerular Filtration Rate mL/min (>60) Glucose Level 88 MG/DL (74-106) Calcium Level 9.2 MG/DL (8.5-10.1) Impression/Recommendations Status: unchanged Recommendations # [id number] MICHAEL PELLETIER Sep 06, 2017 14:45
[2017-09-06 16:00] VITALS: BP 133/65
--- NOTE | 2017-09-06 18:30 | Cardiology Progress Note ---
Assessment/Plan Assessment/Plan 1. Reported chest pains. 2. Electrolyte abnormalities including hypernatremia and hypokalemia. 3. Dementia. 4. Possible encephalopathy. 5. Premature atrial complexes. trop neg on repat confused tele sinus , pac abd distended will defer to gi Subjective ROS Limited/Unobtainable: Yes Subjective confused not eating spitting out Objective Last 24 Hour Vital Signs Date Time Temp Pulse Resp B/P (MAP) Pulse Ox O2 Delivery O2 Flow Rate FiO2 09/06/17 16:00 97.2 60 22 133/65 95 Room Air 09/06/17 16:00 95 Room Air 09/06/17 16:00 68 09/06/17 12:46 97.9 67 18 126/67 94 Room Air 09/06/17 12:00 98 Room Air 09/06/17 12:00 64 09/06/17 08:31 69 132/76 09/06/17 08:12 97.3 69 18 132/76 98 Room Air 09/06/17 08:00 96 Room Air 09/06/17 08:00 69 09/06/17 04:00 63 09/06/17 04:00 97.5 70 20 135/72 96 Room Air 09/06/17 00:22 97.7 82 20 123/77 95 Room Air 09/06/17 00:00 73 09/05/17 20:20 97.0 71 20 152/70 94 09/05/17 20:00 81 General Appearance: no apparent distress Neck: supple Cardiovascular: normal rate, regular rhythm Respiratory/Chest: lungs clear, normal breath sounds Abdomen: distended Extremities: normal range of motion, non-tender Intake and Output 09/06/17 09/07/17 19:00 07:00 Intake Total 75 ml Balance 75 ml IV Total 75 ml Laboratory Tests Test 09/06/17 06:35 White Blood Count 6.5 K/UL (4.8-10.8) Red Blood Count 3.87 M/UL (4.70-6.10) L Hemoglobin 12.5 G/DL (14.2-18.0) L Hematocrit 37.2 % (42.0-52.0) L Mean Corpuscular Volume 96 FL (80-99) Mean Corpuscular Hemoglobin 32.2 PG (27.0-31.0) H Mean Corpuscular Hemoglobin Concent 33.5 G/DL (32.0-36.0) Red Cell Distribution Width 12.5 % (11.6-14.8) Platelet Count 206 K/UL (150-450) Mean Platelet Volume 6.6 FL (6.5-10.1) Neutrophils (%) (Auto) 69.7 % (45.0-75.0) Lymphocytes (%) (Auto) 18.4 % (20.0-45.0) L Monocytes (%) (Auto) 8.0 % (1.0-10.0) Eosinophils (%) (Auto) 2.8 % (0.0-3.0) Basophils (%) (Auto) 1.1 % (0.0-2.0) Sodium Level 151 MMOL/L (136-145) H Potassium Level 3.1 MMOL/L (3.5-5.1) L Chloride Level 116 MMOL/L (98-107) H Carbon Dioxide Level 26 MMOL/L (21-32) Anion Gap 9 mmol/L (5-15) Blood Urea Nitrogen 21 mg/dL (7-18) H Creatinine 0.9 MG/DL (0.55-1.30) Estimat Glomerular Filtration Rate mL/min (>60) Glucose Level 88 MG/DL (74-106) Calcium Level 9.2 MG/DL (8.5-10.1) Troponin I 0.004 ng/mL (0.000-0.056) Valproic Acid (Depakene) Level 11 MCG/ML (50-100) L DAO HERRERA Sep 06, 2017 18:30
--- NOTE | 2017-09-06 19:04 | Internal Med Progress Note ---
Subjective Date of Service: Sep 06, 2017 Physician Name Andrew Szymanski Attending Physician Darvin Stevens MD Current Medications Medications (Trade) Dose Ordered Sig/Nicolle Route PRN Reason Start Time Stop Time Status Last Admin Dose Admin Acetaminophen (Tylenol) 650 mg Q4H PRN ORAL FEVER 09/04/17 12:45 10/04/17 12:44 Albuterol/ Ipratropium (Albuterol/ Ipratropium) 3 ml EVERY 4 HOURS PRN HHN Shortness of Breath 09/04/17 12:45 09/09/17 12:44 Amlodipine Besylate (Norvasc) 10 mg DAILY ORAL 09/05/17 09:00 10/05/17 08:59 09/06/17 08:31 Aspirin (ASA) 162 mg DAILY ORAL 09/05/17 09:00 10/05/17 08:59 09/06/17 08:31 Diltiazem HCl (Cardizem) 10 mg EVERY HOUR PRN IV heart rate more than 120, 09/04/17 12:45 10/04/17 12:44 Divalproex Sodium (Depakote Sprinkles) 125 mg EVERY 12 HOURS ORAL 09/04/17 21:00 10/04/17 20:59 09/06/17 08:31 Docusate Sodium (Colace) 100 mg TWICE A DAY ORAL 09/05/17 18:00 10/05/17 17:59 09/06/17 17:26 Donepezil HCl (Aricept) 5 mg DAILY ORAL 09/05/17 09:00 10/05/17 08:59 09/06/17 08:31 Enalaprilat (Vasotec) 2.5 mg EVERY 6 HOURS PRN IV sbp more than 160 09/04/17 12:45 10/04/17 12:44 Heparin Sodium (Porcine) (Heparin 5000 units/ml) 5,000 units EVERY 12 HOURS SUBQ 09/04/17 21:00 10/04/17 20:59 09/06/17 09:28 Ketorolac Tromethamine (Toradol 30mg) 30 mg Q6HR PRN IV moderate pain ( 4-6) 09/04/17 12:45 09/09/17 12:44 Memantine (Namenda) 5 mg TWICE A DAY ORAL 09/04/17 18:00 10/04/17 17:59 09/06/17 17:26 Morphine Sulfate (Morphine Sulfate) 2 mg EVERY 4 HOURS PRN IVP severe Pain (Pain Scale 7-10) 09/04/17 12:45 09/11/17 12:44 Nitroglycerin (Ntg) 0.4 mg Q5M PRN SL Prn Chest Pain 09/04/17 12:45 10/04/17 12:44 Ondansetron HCl (Zofran) 4 mg Q6H PRN IVP Nausea & Vomiting 09/04/17 12:45 10/04/17 12:44 Polyethylene Glycol (Miralax) 17 gm DAILYPRN PRN ORAL Constipation 09/04/17 12:45 10/04/17 12:44 Potassium Chloride 30 meq/ Dextrose 1,015 ml @ 75 mls/hr [id number] IV 09/06/17 13:00 10/06/17 12:59 09/06/17 13:23 Temazepam (Restoril) 15 mg HSPRN PRN ORAL Insomnia 09/04/17 12:45 09/11/17 12:44 09/05/17 00:10 Allergies: Coded Allergies: No Known Allergies (Unverified , 05/17/16) ROS Limited/Unobtainable: Yes Subjective 87 YO M admitted with chest pain. Cover for Int Med-Dr Stevens. Await discharge to [facility] Objective Last Vital Signs Date Time Temp Pulse Resp B/P (MAP) Pulse Ox O2 Delivery O2 Flow Rate FiO2 09/06/17 16:00 97.2 60 22 133/65 95 Room Air 09/05/17 16:00 2.0 Laboratory Tests Test 09/06/17 06:35 White Blood Count 6.5 K/UL (4.8-10.8) Red Blood Count 3.87 M/UL (4.70-6.10) L Hemoglobin 12.5 G/DL (14.2-18.0) L Hematocrit 37.2 % (42.0-52.0) L Mean Corpuscular Volume 96 FL (80-99) Mean Corpuscular Hemoglobin 32.2 PG (27.0-31.0) H Mean Corpuscular Hemoglobin Concent 33.5 G/DL (32.0-36.0) Red Cell Distribution Width 12.5 % (11.6-14.8) Platelet Count 206 K/UL (150-450) Mean Platelet Volume 6.6 FL (6.5-10.1) Neutrophils (%) (Auto) 69.7 % (45.0-75.0) Lymphocytes (%) (Auto) 18.4 % (20.0-45.0) L Monocytes (%) (Auto) 8.0 % (1.0-10.0) Eosinophils (%) (Auto) 2.8 % (0.0-3.0) Basophils (%) (Auto) 1.1 % (0.0-2.0) Sodium Level 151 MMOL/L (136-145) H Potassium Level 3.1 MMOL/L (3.5-5.1) L Chloride Level 116 MMOL/L (98-107) H Carbon Dioxide Level 26 MMOL/L (21-32) Anion Gap 9 mmol/L (5-15) Blood Urea Nitrogen 21 mg/dL (7-18) H Creatinine 0.9 MG/DL (0.55-1.30) Estimat Glomerular Filtration Rate mL/min (>60) Glucose Level 88 MG/DL (74-106) Calcium Level 9.2 MG/DL (8.5-10.1) Troponin I 0.004 ng/mL (0.000-0.056) Valproic Acid (Depakene) Level 11 MCG/ML (50-100) L Intake and Output 09/06/17 09/07/17 19:00 07:00 Intake Total 375 ml Balance 375 ml IV Total 375 ml Objective General Appearance: WD/WN, no apparent distress, alert EENT: PERRL/EOMI, normal ENT inspection Neck: non-tender, normal alignment, supple, normal inspection Cardiovascular: normal peripheral pulses, normal rate, regular rhythm, no gallop/murmur, no JVD Respiratory/Chest: chest wall non-tender, lungs clear, normal breath sounds, no respiratory distress, no accessory muscle use Abdomen: normal bowel sounds, non tender, soft, no organomegaly, no mass, abnormal bowel sounds Extremities: normal range of motion Neurologic: associate director qa II-XII grossly normal, no motor/sensory deficits Skin: normal pigmentation, warm/dry Assessment/Plan Problem List: (1) Chest pain Assessment & Plan: Caridology workup in progress - see cardiology note. (2) Toxic metabolic encephalopathy (3) Alzheimer's dementia Assessment & Plan: Continue aricept and namenda (4) Hypokalemia Assessment & Plan: replace K+ (5) Hypertension Assessment & Plan: continue vasotec and diltiazem Assessment/Plan Discharge to [facility] today ANDREW SZYMANSKI Sep 06, 2017 19:04
[2017-09-06 20:00] VITALS: BP 159/66
[2017-09-07] VITALS: BP 137/69
--- NOTE | 2017-09-07 | Consultation ---
DATE OF CONSULTATION: 09/06/2017 NEUROLOGICAL CONSULTATION CONSULTING PHYSICIAN: Christopher Harvey M.D. REQUESTING PHYSICIAN: Darvin Stevens M.D. HISTORY OF PRESENT ILLNESS: The patient is an 87 years old man, seen in neurological consultation to evaluate persistent changes in mental status and gait abnormality. The patient was unable to provide with this information. This was compiled from medical records as well as my conversation with his son who was at bedside. He was admitted after having few days of chest pain. The patient reported in the last few days he was feeling increasingly weak, reduced appetite, some diarrhea, and intermittent chest pain. In addition, according to the family, he became increasingly drowsy. He was brought to the emergency room. His vital signs were stable. He was afebrile. His EKG normal sinus rhythm. Chest x-ray, no acute disease noted. With the changes in mental status, CAT scan of the brain was requested, this revealed a marked enlargement of ventricles, periventricular deep white matter low attenuation, densely calcified mass, left supraclinoid region extending into the posterior and middle fossa measuring 3 x 2.7 cm in diameter displacing camacho and midbrain posteriorly, but no supratentorial mass effect noted. There was some encephalomalacia, right occipital lobe, no hemorrhage. His echocardiogram with ejection fraction of 60% to 65%, no mural thrombi displayed. Laboratory work included mild anemia, hemoglobin 13.2, and hematocrit 38.9. Coagulation panel was normal. Urinalysis was unremarkable except for ketones 2+ and protein 2+. Chemistry panel with sodium 148, potassium 2.8, and BUN of 20. BNP of 222, but normal folate, T4, troponins, and CPK. Repeat laboratory studies, sodium 151, BUN remained 21. Since admission until present, the patient remained drowsy, briefly awakening. PAST MEDICAL HISTORY: The patient has a history of progressive dementia in the last three years. His baseline described as being unable to recall at times the name of his children or , he would know the name of the , but would not recognize her. He was unable to provide with activities of daily living except he is able to feed himself. He is incontinent and he is assisted with dressing, assisted with ambulation as he is using walker in the last year or two. The patient has been seen at this hospital two years ago. He was diagnosed with progressive cognitive loss most likely senile dementia advanced, hypertension, degenerative joint disease, and presence of large calcified meningioma. SOCIAL HISTORY: Lives with his family. No alcohol. No drug abuse. Nonsmoker. FAMILY HISTORY: Noncontributory. REVIEW OF SYMPTOMS: Unreliable as the patient indicated he is feeling well. PHYSICAL EXAMINATION: GENERAL: A well-developed, well-nourished elderly man, found to be asleep. His family at bedside. VITAL SIGNS: Stable, blood pressure 129/67, and temperature 97.5. HEENT: Head, normocephalic. No evidence of trauma. Eyes, ears, and throat are clear. NECK: Rigid in all directions. MUSCULOSKELETAL: Unremarkable. There are no deformities except arthritic changes in both knees and ankles. Peripheral pulses 1+ symmetric. CRANIAL NERVE II: Pupils both responding to light and accommodation. Extraocular movements full range. Visual vang are normal except some limitation in the left visual field. CRANIAL NERVE V: Normal corneal responses. CRANIAL NERVE VII: Slight facial asymmetry. CRANIAL NERVE VIII: Hearing loss. CRANIAL NERVES IX THROUGH XII: Within normal limits. MOTOR EXAMINATION: Revealed slight rigidity diffusely with strength 5/5 in all extremities except 4/5 in the left lower extremity. Deep tendon reflexes are depressed bilaterally. Plantar response is mute. SENSORY EXAMINATION: Withdrawing to pin stimulation in arms and legs. Gait not tested. NEUROLOGIC: Mental status reveals the patient continued to be groggy, but arousable briefly, able to respond yes or no, able to follow simple commands given in Occitan. IMPRESSION: 1. Senile dementia, advanced. 2. Hypersomnia. 3. Hypernatremia. 4. History of hypertension. 5. Large meningioma with compression of midbrain. 6. 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 DISCUSSION: The patient has no evidence of acute intracranial abnormalities, but rather present continuous dementing process, now contributed by hypernatremia, metabolic derangement, and persistent brainstem/pumpkin compression by meningioma. Avoid sedating treatment. Hold olanzapine. Continue with aspirin, small dose of Depakote and Namenda. Adjust metabolic abnormality. Thank you for allowing me to see this interesting patient in neurological consultation. Christopher Harvey M.D. DR: SANTO JOB#: [id number] CC:
[2017-09-07 04:00] VITALS: BP 133/73
--- NOTE | 2017-09-07 07:44 | Pulmonology Progress Note ---
Assessment/Plan Assessment/Plan ASSESSMENT Acute toxic metabolic encephalopathy on chronic dementia CP r/o ACS Hypokalemia azlheimer dementia dehdyarton HTN PLAN OF CARE tele serial troponin negative, ECG SR/SB with PAC, no acute ischemic changes, thus r/o for acute NE Cardio follows ECHO with pEF 60-65% CT head negative for acute pathology PT/OT/ST IVF monitor renal parameters, lytes, correct as need , correct K prior to dc O2 HHN prn DVT GI prophylaxis Bowel regimen , no diarrhea reported GI follows defer stool C dif as per GI BP management with CCB and optimize as needed continue Aricept and Namenda continue Zyprexa Symptomatic treatment dc today as per PMD Subjective Allergies: Coded Allergies: No Known Allergies (Unverified , 05/17/16) Subjective denies chest pain, SOB, no signs of distress K-3.2 today Objective Last 24 Hour Vital Signs Date Time Temp Pulse Resp B/P (MAP) Pulse Ox O2 Delivery O2 Flow Rate FiO2 09/07/17 04:00 57 09/07/17 04:00 97.9 71 21 133/73 97 09/07/17 00:00 65 09/07/17 00:00 98.2 62 21 137/69 96 09/06/17 20:00 98.1 61 21 159/66 95 09/06/17 20:00 73 09/06/17 16:00 97.2 60 22 133/65 95 Room Air 09/06/17 16:00 95 Room Air 09/06/17 16:00 68 09/06/17 12:46 97.9 67 18 126/67 94 Room Air 09/06/17 12:00 98 Room Air 09/06/17 12:00 64 09/06/17 08:31 69 132/76 09/06/17 08:12 97.3 69 18 132/76 98 Room Air 09/06/17 08:00 96 Room Air 09/06/17 08:00 69 General Appearance: no acute distress HEENT: normocephalic, atraumatic, anicteric, mucous membranes moist Respiratory/Chest: lungs clear, normal breath sounds, no respiratory distress, no accessory muscle use Cardiovascular: regular rhythm, bradycardia - SB on tele with PAC Abdomen: normal bowel sounds, soft, non tender, non distended Extremities: no edema, pedal pulses normal Neurologic/Psychiatric: abnormal gait, alert, responsive Musculoskeletal: atrophy - BLE Current Medications Medications (Trade) Dose Ordered Sig/Nicolle Route PRN Reason Start Time Stop Time Status Last Admin Dose Admin Acetaminophen (Tylenol) 650 mg Q4H PRN ORAL FEVER 09/04/17 12:45 10/04/17 12:44 Albuterol/ Ipratropium (Albuterol/ Ipratropium) 3 ml EVERY 4 HOURS PRN HHN Shortness of Breath 09/04/17 12:45 09/09/17 12:44 Amlodipine Besylate (Norvasc) 10 mg DAILY ORAL 09/05/17 09:00 10/05/17 08:59 09/06/17 08:31 Aspirin (ASA) 162 mg DAILY ORAL 09/05/17 09:00 10/05/17 08:59 09/06/17 08:31 Diltiazem HCl (Cardizem) 10 mg EVERY HOUR PRN IV heart rate more than 120, 09/04/17 12:45 10/04/17 12:44 Divalproex Sodium (Depakote Sprinkles) 125 mg EVERY 12 HOURS ORAL 09/04/17 21:00 10/04/17 20:59 09/06/17 20:55 Docusate Sodium (Colace) 100 mg TWICE A DAY ORAL 09/05/17 18:00 10/05/17 17:59 09/06/17 17:26 Donepezil HCl (Aricept) 5 mg DAILY ORAL 09/05/17 09:00 10/05/17 08:59 09/06/17 08:31 Enalaprilat (Vasotec) 2.5 mg EVERY 6 HOURS PRN IV sbp more than 160 09/04/17 12:45 10/04/17 12:44 Heparin Sodium (Porcine) (Heparin 5000 units/ml) 5,000 units EVERY 12 HOURS SUBQ 09/04/17 21:00 10/04/17 20:59 09/06/17 20:57 Ketorolac Tromethamine (Toradol 30mg) 30 mg Q6HR PRN IV moderate pain ( 4-6) 09/04/17 12:45 09/09/17 12:44 Memantine (Namenda) 5 mg TWICE A DAY ORAL 09/04/17 18:00 10/04/17 17:59 09/06/17 17:26 Morphine Sulfate (Morphine Sulfate) 2 mg EVERY 4 HOURS PRN IVP severe Pain (Pain Scale 7-10) 09/04/17 12:45 09/11/17 12:44 09/07/17 02:24 Nitroglycerin (Ntg) 0.4 mg Q5M PRN SL Prn Chest Pain 09/04/17 12:45 10/04/17 12:44 Ondansetron HCl (Zofran) 4 mg Q6H PRN IVP Nausea & Vomiting 09/04/17 12:45 10/04/17 12:44 Polyethylene Glycol (Miralax) 17 gm DAILYPRN PRN ORAL Constipation 09/04/17 12:45 10/04/17 12:44 Potassium Chloride 30 meq/ Dextrose 1,015 ml @ 75 mls/hr [id number] IV 09/06/17 13:00 10/06/17 12:59 09/07/17 01:32 Temazepam (Restoril) 15 mg HSPRN PRN ORAL Insomnia 09/04/17 12:45 09/11/17 12:44 09/06/17 22:47 Amish HendrixNadine jaimes NP Sep 07, 2017 07:44
[2017-09-07 08:00] VITALS: BP 137/64
[2017-09-07 08:30] LABS: BASOPHILS % (AUTO) 0.9 % (0.0-2.0); EOSINOPHILS % (AUTO) 4.6 % (0.0-3.0); LYMPHOCYTES % (AUTO) 16.1 % (20.0-45.0); MEAN CORPUSCULAR HEMOGLOBIN 32.1 PG (27.0-31.0); MEAN CORPUSCULAR HGB CONC 33.3 G/DL (32.0-36.0); MEAN CORPUSCULAR VOLUME 96 FL (80-99); MEAN PLATELET VOLUME 6.5 FL (6.5-10.1); MONOCYTES % (AUTO) 7.9 % (1.0-10.0); NEUTROPHILS % (AUTO) 70.6 % (45.0-75.0); PLATELET COUNT 196 K/UL (150-450); RED BLOOD COUNT 3.86 M/UL (4.70-6.10); RED CELL DISTRIBUTION WIDTH 12.6 % (11.6-14.8); WHITE BLOOD COUNT 8.4 K/UL (4.8-10.8)
[2017-09-07 08:43] LABS: PHOSPHORUS 2.4 MG/DL (2.5-4.9)
[2017-09-07 08:52] LABS: ALANINE AMINOTRANSFERASE 73 U/L (12-78); ALBUMIN/GLOBULIN RATIO 0.9 (1.0-2.7); ANION GAP 7 mmol/L (5-15); ASPARTATE AMINO TRANSFERASE 93 U/L (15-37); CALCIUM 8.6 MG/DL (8.5-10.1); CARBON DIOXIDE 26 MMOL/L (21-32); CHLORIDE 114 MMOL/L (98-107); CREATININE 0.8 MG/DL (0.55-1.30); POTASSIUM 3.2 MMOL/L (3.5-5.1); SODIUM 147 MMOL/L (136-145)
[2017-09-07] MEDS: Docusate 100mg cap ORAL SCH (09:42)
[2017-09-07] MEDS: Donepezil 5mg Tab ORAL SCH (09:42)
[2017-09-07] MEDS: Heparin 5000 units/ml inj SUBQ SCH (09:44)
[2017-09-07] MEDS: Depakote 125mg Sprinkles ORAL SCH (09:46)
[2017-09-07] MEDS: Aspirin Baby 81mg ORAL SCH (09:47)
[2017-09-07] MEDS: Memantine 5 MG TAB ORAL SCH (09:48)
--- NOTE | 2017-09-07 09:55 | Diagnostic Imaging Report ---
Indication: Abdominal distention Technique: Supine view of the abdomen Comparison: none Findings: Considerable gas is seen throughout the colon, which is upper limits of normal in caliber. Small bowel loops are not definitely visualized. There are degenerative changes of the lumbar spine Impression: Diffusely gas-filled upper limits of normal caliber colon. Probably functional in nature, distal obstruction not completely excludable.
--- NOTE | 2017-09-07 10:37 | GI Progress Note ---
Assessment/Plan Problems: (1) Alzheimer's dementia ICD Codes: G30.9 - Alzheimer's disease, unspecified SNOMED: 05767913 Qualifiers: Qualified Codes: G30.9 - Alzheimer's disease, unspecified; F02.80 - Dementia in other diseases classified elsewhere without behavioral disturbance (2) Diarrhea ICD Codes: R19.7 - Diarrhea, unspecified SNOMED: 38281888 Qualifiers: Qualified Codes: R19.7 - Diarrhea, unspecified (3) Toxic metabolic encephalopathy ICD Codes: G92 - Toxic encephalopathy SNOMED: 232005361 (4) Episode of generalized weakness ICD Codes: R53.1 - Weakness SNOMED: 33099142 (5) Dehydration ICD Codes: E86.0 - Dehydration SNOMED: 36591976 Status: stable Status Narrative Discussed with Dr. Chauhan. Assessment/Plan KUB reviewed >> Considerable gas is seen throughout the colon, which is upper limits of normal in caliber. symptomatic treatment OB stool r/o GI bleed defer cdiff, no diarrhea reported >> bowel regime monitor H&H, prn transfusions H2B regular diet electrolyte correction PT/OT eval >> encourage ambulation, turn q2 hours fu labs The patient was seen and examined at bedside and all new and available data was reviewed in the patients chart. I agree with the above findings, impression and plan. (Patient seen earlier today. Signature stamp does not reflect patient encounter time.). - Mioses Chauhan MD Subjective Subjective limited Objective Last 24 Hour Vital Signs Date Time Temp Pulse Resp B/P (MAP) Pulse Ox O2 Delivery O2 Flow Rate FiO2 09/07/17 09:52 56 137/64 09/07/17 08:00 97.3 56 16 137/64 94 Room Air 09/07/17 04:00 57 09/07/17 04:00 97.9 71 21 133/73 97 09/07/17 00:00 65 09/07/17 00:00 98.2 62 21 137/69 96 09/06/17 20:00 98.1 61 21 159/66 95 09/06/17 20:00 73 09/06/17 16:00 97.2 60 22 133/65 95 Room Air 09/06/17 16:00 95 Room Air 09/06/17 16:00 68 09/06/17 12:46 97.9 67 18 126/67 94 Room Air 09/06/17 12:00 98 Room Air 09/06/17 12:00 64 Laboratory Tests Test 09/07/17 07:00 White Blood Count 8.4 K/UL (4.8-10.8) Red Blood Count 3.86 M/UL (4.70-6.10) L Hemoglobin 12.4 G/DL (14.2-18.0) L Hematocrit 37.2 % (42.0-52.0) L Mean Corpuscular Volume 96 FL (80-99) Mean Corpuscular Hemoglobin 32.1 PG (27.0-31.0) H Mean Corpuscular Hemoglobin Concent 33.3 G/DL (32.0-36.0) Red Cell Distribution Width 12.6 % (11.6-14.8) Platelet Count 196 K/UL (150-450) Mean Platelet Volume 6.5 FL (6.5-10.1) Neutrophils (%) (Auto) 70.6 % (45.0-75.0) Lymphocytes (%) (Auto) 16.1 % (20.0-45.0) L Monocytes (%) (Auto) 7.9 % (1.0-10.0) Eosinophils (%) (Auto) 4.6 % (0.0-3.0) H Basophils (%) (Auto) 0.9 % (0.0-2.0) Sodium Level 147 MMOL/L (136-145) H Potassium Level 3.2 MMOL/L (3.5-5.1) L Chloride Level 114 MMOL/L (98-107) H Carbon Dioxide Level 26 MMOL/L (21-32) Anion Gap 7 mmol/L (5-15) Blood Urea Nitrogen 17 mg/dL (7-18) Creatinine 0.8 MG/DL (0.55-1.30) Estimat Glomerular Filtration Rate mL/min (>60) Glucose Level 113 MG/DL (74-106) H Calcium Level 8.6 MG/DL (8.5-10.1) Phosphorus Level 2.4 MG/DL (2.5-4.9) L Magnesium Level 2.0 MG/DL (1.8-2.4) Total Bilirubin 0.9 MG/DL (0.2-1.0) Aspartate Amino Transf (AST/SGOT) 93 U/L (15-37) H Alanine Aminotransferase (ALT/SGPT) 73 U/L (12-78) Alkaline Phosphatase 65 U/L (46-116) Total Protein 6.0 G/DL (6.4-8.2) L Albumin 2.9 G/DL (3.4-5.0) L Globulin 3.1 g/dL Albumin/Globulin Ratio 0.9 (1.0-2.7) L Height (Feet): 5 Height (Inches): 7.00 Weight (Pounds): 150 General Appearance: WD/WN, no apparent distress, alert Cardiovascular: normal rate Respiratory/Chest: normal breath sounds, no respiratory distress Abdominal Exam: normal bowel sounds, non tender, soft Extremities: normal range of motion - generalized weakness, non-tender Maggi Lange N.P. Sep 07, 2017 10:37 KATHE CHAUHAN Sep 10, 2017 08:54
[2017-09-07 12:00] VITALS: BP 133/70
--- NOTE | 2017-09-07 17:16 | Discharge Summary ---
Discharge Summary Hospital Course Date of Admission Sep 04, 2017 at 11:02 Date of Discharge Sep 07, 2017 at 14:30 Admitting Diagnosis WEAKNESS,ACS HPI Ty Hernadez is a 87 year old male who was admitted on Sep 04, 2017 at 11:02 for Weakness, Acute Coronary Syndrome Hospital Course The patient was seen and examined at bedside and all new and available data was reviewed in the patients chart. Last 24 Hour Vital Signs Date Time Temp Pulse Resp B/P (MAP) Pulse Ox O2 Delivery O2 Flow Rate FiO2 09/07/17 12:00 60 09/07/17 12:00 97.5 68 21 133/70 96 Room Air 09/07/17 09:52 56 137/64 09/07/17 08:18 64 18 Room Air 21 09/07/17 08:00 56 09/07/17 08:00 97.3 56 16 137/64 94 Room Air 09/07/17 04:00 57 09/07/17 04:00 97.9 71 21 133/73 97 09/07/17 00:00 65 09/07/17 00:00 98.2 62 21 137/69 96 09/06/17 20:00 98.1 61 21 159/66 95 09/06/17 20:00 73 General Appearance: no acute distress HEENT: normocephalic, atraumatic, anicteric, mucous membranes moist Respiratory/Chest: lungs clear, normal breath sounds, no respiratory distress, no accessory muscle use Cardiovascular: regular rhythm, bradycardia - SB on tele with PAC Abdomen: normal bowel sounds, soft, non tender, non distended Extremities: no edema, pedal pulses normal Neurologic/Psychiatric: abnormal gait, alert, responsive Musculoskeletal: atrophy - BLE (Patient was seen earlier today. Signature timestamp does not reflect patient encounter time) Darvin Stevens MD Discharge Discharge Disposition Patient was discharged to SNF/Subacute Facility(03) Discharge Diagnoses: Darvin Stevens MD Sep 07, 2017 17:16
--- NOTE | 2017-09-08 04:47 | Discharge Summary ---
DATE OF ADMISSION: 09/04/2017 DATE OF DISCHARGE: 09/07/2017 BRIEF HISTORY AND HOSPITAL COURSE: This is an 87-year-old gentleman with past medical history significant for hypertension and Alzheimer dementia, who was presented to hospital complaining about chest pain, shortly after initial evaluation. The patient was admitted to the hospital with chest pain possible acute coronary syndrome with a hypokalemia. Throughout hospital course, the patient was followed by Dr. Chauhan from Gastroenterology, Dr. Christopher Harvey from Neurology, Dr. Thong Deluna from Cardiology, and Dr. Eugenio Aguila from Pulmonary Critical Care. Throughout hospital course, the patient was worked up for diarrhea and toxic metabolic encephalopathy. The patient's status gradually improved and subsequently was discharged to the retirement to be followed as outpatient. FINAL DIAGNOSES: 1. Acute toxic metabolic encephalopathy on chronic dementia. 2. Chest pain less likely acute coronary syndrome. 3. Hypokalemia. 4. Alzheimer's dementia. 5. Dehydration. 6. Hypertension. 7. Diarrhea. DIET: Cardiac diet. FOLLOWUP: The patient will be transferred to the nursing facility to be followed up as an outpatient. MEDICATION DISCHARGE: Continue discharge medication list. ACTIVITY: As tolerated. Darvin Stevens M.D. DR: IRAJ JOB#: [id number] CC:
== END 2017-09-07 14:30 | DRG 92 ==
LOC: EMR 10:49 → EDBEDREQ 10:56 → 2E 11:02 → EDBEDREQ 11:07 → 2E 22:41
DX: G92 Toxic encephalopathy (principal); I24.9 Acute ischemic heart disease, unspecified; E87.0 Hyperosmolality and hypernatremia; I69.354 Hemiplegia and hemiparesis following cerebral infarction affecting left non-dominant side; G30.9 Alzheimer's disease, unspecified; F02.80 Dementia in other diseases classified elsewhere, unspecified severity, without behavioral disturbance, psychotic disturbance, mood disturbance, and anxiety; E87.6 Hypokalemia; R19.7 Diarrhea, unspecified; D32.0 Benign neoplasm of cerebral meninges; I10 Essential (primary) hypertension; E86.0 Dehydration; I49.1 Atrial premature depolarization; G47.10 Hypersomnia, unspecified; I69.393 Ataxia following cerebral infarction; I69.398 Other sequelae of cerebral infarction; Z87.891 Personal history of nicotine dependence
CPT/HCPCS: 36415; 70450; 71010; 74000; 80048; 80053; 80061; 80164; 81003; 82378; 82550; 82553; 82607; 82746; 83540; 83550; 83735; 83880; 84100; 84439; 84443; 84484; 85025; 85044; 85610; 85730; 86140; 93005; 93306; 94664; 99285; J8499